=== PATIENT | male | born 1945 | race Caucasian/White ===

== ENCOUNTER 2019-09-10 12:17 | Observation (INO) ==
[2019-09-10 12:58] LABS: Basophils % 0.3 % (0.1-2.0); Eosinophils # 0.1 K/mm3 (0.0-0.4); Eosinophils % 0.8 % (0.1-12.0); Hematocrit 49.2 % (42.0-52.0); Hemoglobin 16.3 g/dL (14.1-18.0); Lymphocytes # 0.6 K/mm3 (0.7-4.5); Lymphocytes % 7.6 % (10-50); Mean Corpuscular HGB Conc 33.1 g/dL (31.8-35.4); Mean Corpuscular Volume 99.8 fl (80-94); Mean Platelet Volume 8.2 fl (7.4-10.4); Monocytes # 0.3 K/mm3 (0.1-1.0); Monocytes % 4.1 % (1.7-9.3); Neutrophils # 6.5 K/mm3 (1.8-7.8); Neutrophils % 87.2 % (37.0-80.0); Platelet Count 197 K/mm3 (142-424); Red Blood Count 4.93 M/mm3 (4.60-6.20); Red Cell Distribution Width 13.8 % (11.5-17.5); White Blood Count 7.5 K/mm3 (4.8-10.8)
[2019-09-10 13:03] LABS: Lymphocytes % 4 % (10-50); Monocytes % 3 % (2-9); Neutrophils % 93 % (42-76); RBC Morphology Normal; Total Cells Counted 100
[2019-09-10 13:05] LABS: Alanine Aminotransferase 17 U/L (12-78); Albumin Level 3.8 gm/dL (3.4-5.0); Alkaline Phosphatase 85 U/L (46-116); Anion Gap 16.6 mEq/L (5-15); Aspartate Amino Transferase 33 U/L (15-37); Bilirubin,Direct 0.4 mg/dL (0.0-0.2); Bilirubin,Indirect 1.4 mg/dL (0.0-0.9); Bilirubin,Total 1.8 mg/dL (0.2-1.0); Blood Urea Nitrogen 14 mg/dL (7-18); Calcium 9.5 mg/dL (8.5-10.1); Carbon Dioxide 25 mmol/L (21.0-32.0); Chloride 102 mmol/L (98-107); Glucose 111 mg/dL (74-106); Sodium 140 mmol/L (136-145); Total Protein,Serum 8.3 gm/dL (6.4-8.2)
[2019-09-10 14:35] LABS: VBG Base Excess -2.3 mmol/L (-2.4-2.3); VBG HCO3 22.7 mmol/L (23-30); VBG Oxygen Saturation 96.1 % (50-70); VBG PCO2 38.7 mmol/L (35-51); VBG PH 7.39 mmol/L (7.31-7.41); VBG PO2 95.5 mmol/L (28-40); VBG Total CO2 23.9 mmol/L (23-27)
--- NOTE | 2019-09-10 21:57 | Emergency Department Note ---
ED Disposition Clinical Impression: Pulmonary fibrosis Pneumonia Qualifiers: Pneumonia type: due to unspecified organism Laterality: bilateral Lung locatio n: unspecified part of lung Qualified Code(s): J18.9 - Pneumonia, unspecified organism Disposition: Admitted as Observation Condition on Discharge: [facility] - Critical Care Critical Care Time: No Attestation: On 09/10/19, the high probability of a clinically significant, sudden or life threatening deterioration of the following system(s) required my full and direct attention, intervention and personal management. The time I documented below is in addition to time spent performing reported procedures but includes the following listed in this critical care notation. Medical Decision Making - Scooby Inquiry Pt receiving controlled substance: No Vital Signs: 09/10/19 12:27 09/10/19 16:00 09/10/19 17:15 Temperature 98.6 F 98.2 F Temperature Source Oral Oral Pulse Rate 89 Pulse Rate [Right Radial] 79 64 Respiratory Rate 18 20 16 Blood Pressure 141/79 H Blood Pressure [Right Arm] 149/96 H 168/78 H Blood Pressure Mean [Right Arm] 113 108 Blood Pressure Source [Right Arm] Automatic Cuff Blood Pressure Position [Right Arm] Supine 02 Sat by Pulse Oximetry 86 L 96 Oxygen Delivery Method Room Air Nasal Cannula Room Air Oxygen Flow Rate (LPM) 2 09/10/19 17:17 Temperature 99.5 F Temperature Source Oral Pulse Rate Pulse Rate [Right Radial] 73 Respiratory Rate Blood Pressure Blood Pressure [Right Arm] 133/69 Blood Pressure Mean [Right Arm] 90 Blood Pressure Source [Right Arm] Automatic Cuff Blood Pressure Position [Right Arm] Supine 02 Sat by Pulse Oximetry 88 L Oxygen Delivery Method Nasal Cannula Oxygen Flow Rate (LPM) 2 - Lab Data Lab Results 09/10/19 12:36: WBC 7.5, RBC 4.93, Hgb 16.3, Hct 49.2, MCV 99.8 H, MCH 33.0 H, MCHC 33.1, RDW 13.8, Plt Count 197, MPV 8.2, Neut % (Auto) 87.2 H, Lymph % (Auto) 7.6 L, [place] % (Auto) 4.1, Eos % (Auto) 0.8, Baso % (Auto) 0.3, Neut # (Auto) 6.5, Lymph # (Auto) 0.6 L, [place] # (Auto) 0.3, Eos # (Auto) 0.1, Baso # (Auto) 0.0, Total Counted 100, Neutrophils % (Manual) 93 H, Lymphocytes % (Manual) 4 L, Monocytes % (Manual) 3, Platelet Estimate Normal, RBC Morphology Normal 09/10/19 12:36: Sodium 140, Potassium 3.6, Chloride 102, Carbon Dioxide 25, [place] 16.6 H, BUN 14, Creatinine 0.92, Estimated Creat Clear 78, Estimated GFR 81, Est GFR ( Amer) 98, Glucose 111 H, Calcium 9.5, Total Bilirubin 1.8 H , Direct Bilirubin 0.4 H, Indirect Bilirubin 1.4 H, AST 33, ALT 17, Alkaline Phosphatase 85, Troponin I < 0.02, Total Protein 8.3 H, Albumin 3.8 09/10/19 12:36: Lactate 1.9 09/10/19 14:12: VBG pH 7.39, VBG pCO2 38.7, VBG pO2 95.5 H, VBG HCO3 22.7 L, VBG Total CO2 23.9, VBG O2 Saturation 96.1 H, VBG Base Excess -2.3 09/10/19 15:23: Troponin I < 0.02 09/10/19 16:40: Influenza Type A Ag Negative, Influenza Type B Ag Negative Result diagrams: 09/10/19 12:36 09/10/19 12:36 Orders (Tests/Meds): ED MEDICATIONS Generic Name Dose Route Start Last Admin Trade Name Robeq PRN Reason Stop Dose Admin Aspirin 81 mg 09/11/19 09:00 Aspirin 81mg Enteric Coated Tablet PO 10/11/19 08:59 DAILY KRISTA Donepezil HCl 5 mg 09/11/19 09:00 Aricept 5mg PO 10/11/19 08:59 DAILY KRISTA Azithromycin 500 mg/ Sodium 250 mls @ 250 mls/hr 09/11/19 16:45 Chloride IV 09/24/19 16:44 Q24H KRISTA Protocol Ceftriaxone Sodium 1 gm/ 50 mls @ 100 mls/hr 09/11/19 16:45 Sodium Chloride IV 09/24/19 16:44 Q24H KRISTA Protocol Lisinopril 10 mg 09/11/19 09:00 Zestril 10mg Tablet PO 10/11/19 08:59 DAILY KRISTA Non-Formulary Medication 1 mg 09/11/19 09:00 Glimepiride PO 10/11/19 08:59 DAILY KRISTA Non-Formulary Medication 1,000 mg pe 09/10/19 21:00 09/10/19 21:03 Metformin Hcl [Metformin 1000mg Tablets] PO 10/10/19 20:59 1,000 mg pe BID KRITSA Administration Non-Formulary Medication 40 mg 09/11/19 09:00 Omeprazole Magnesium [Prilosec] PO 10/11/19 08:59 DAILY KRISTA Non-Formulary Medication 40 mg 09/11/19 09:00 Rosuvastatin Calcium PO 10/11/19 08:59 DAILY KRISTA Discontinued Medications Generic Name Dose Route Start Last Admin Trade Name Freq PRN Reason Stop Dose Admin Azithromycin 500 mg/ Sodium 250 mls @ 250 mls/hr 09/10/19 16:45 09/10/19 19:38 Chloride IV 09/24/19 16:44 250 mls/hr Q24H KRISTA Administration Protocol Ceftriaxone Sodium 1 gm/ 50 mls @ 100 mls/hr 09/10/19 16:45 09/10/19 16:42 Sodium Chloride IV 09/24/19 16:44 100 mls/hr Q24H KRISTA Administration Protocol Ioversol 70 ml 09/10/19 13:39 09/10/19 13:40 Rad-Optiray 350 100ml Vial IV 09/10/19 13:40 70 ml ONCE ONE Administration Protocol Sodium Chloride 10 ml 09/10/19 13:39 09/10/19 13:40 Rad-Saline Flush 10ml Syringe IV 09/10/19 13:40 10 ml ONCE ONE Administration Sodium Chloride 50 ml 09/10/19 13:39 09/10/19 13:40 Rad-Ns 50ml Vial IV 09/10/19 13:40 50 ml ONCE ONE Administration ORDERS Category Date Time Status Blood Culture Stat Micro 09/10/19 12:32 Received Medical Decision Narrative: In summary patient is a 73-year-old male who is nontoxic in appearance, who presents to the emergency department for evaluation of shortness of air. On initial evaluation patient is satting 85% on room air, but has no evidence of respiratory distress, or extremities. Patient's EKG showed normal sinus rhythm, no ST elevation, depression, or QT prolongation noted. Given patient's presentation and for potential pneumonia, pulmonary embolism, acute coronary syndrome, COPD exacerbation. This appropriate work-up ordered. Since chest x-ray returned showing no cardiopulmonary disease. Initial troponin returns and shows no elevation. PE ordered and returned showing no pulmonary embolism patient does have bilateral groundglass opacities could be pulmonary fibrosis versus pneumonitis.. No evidence of a lobar pneumonia. Patient's labs returned and are nonactionable. There is no significant delta. Patient's case discussed with a medical customer service representative of Dr. Mix who agrees given patient's new O2 demand he requires admission for further evaluation of possible pulmonary fibrosis. Plan was discussed with the patient he was amenable. For now patient will be treated as though he is a pneumonia, patient started on azithromycin, and ceftriaxone. Patient admitted. General Adult HPI - General Chief complaint: Shortness of Breath/Dyspnea Stated complaint: chest Xray trouble breathing Time Seen by Provider: 09/10/19 12:30 Mode of Arrival: Ambulatory Limitations: No Limitations Description of Symptoms (Recalled from ER Triage Doc. by RN): PT STATES THAT HE HAS HAD SHORTNESS OF BREATH X 3-4 DAYS. PT DENIES FEVER. PT STATES THAT FOR APPROX 1 MONTH HE HAS DECLINED. PT STATES THAT HE USED TO WALK/RUN DAILY AND THAT NOW THE LAST MONTH HE IS "TOO SHORT OF BREATH." - History of Present Illness HPI narrative: In summary patient is a previously healthy 73-year-old male presenting to the emergency department for evaluation of shortness of air. Patient states he has had a 1 month of ongoing shortness of breath without chest pain. Patient states this is acutely worsened over the last 2 to 3 days. Given this patient presented to the emergency department for further evaluation. Patient feels as though he cannot get a complete breath of air. He denies any chest pain though feels chest congestion. He denies any fevers, chills, nausea, vomiting, abdomi nal pain, or dysuria. Patient states that his shortness of air is worse with deep breathing, and exertion. - Related Data Home Medications Medication Instructions Recorded Confirmed Aspirin [Aspir-Low] 81 mg PO HS 09/10/19 09/10/19 Bifidobacterium Infantis [Align] 10.5 mg PO DAILY 09/10/19 09/10/19 Donepezil HCl [Aricept 5mg 5 mg PO HS 09/10/19 09/10/19 Tablet] Glimepiride 1 mg PO DAILY 09/10/19 09/10/19 Metformin HCl [Metformin 1000mg 1,000 mg pe PO BID 09/10/19 09/10/19 Tablets] Multivit-Min/FA/Lycopen/Lutein 1 each PO DAILY 09/10/19 09/10/19 [Centrum Silver Tablet] Omeprazole Magnesium [Prilosec] 40 mg PO DAILY 09/10/19 09/10/19 Rosuvastatin Calcium 40 mg PO HS 09/10/19 09/10/19 lisinopriL [Lisinopril 10mg Tab] 10 mg PO HS 09/10/19 09/10/19 Allergies Allergy/AdvReac Type Severity Reaction Status Date / Time No Known Allergies Allergy Verified 09/10/19 12:31 [facility] History - Hepatitis A Screen Drug use history?: No High risk sexual behaviors?: No History of sexually transmitted infection?: No Currently employed?: No Childcare worker?: No Do you have indoor plumbing?: Yes Do you have electricity?: Yes Attestation statement:: This patient has been screened for Hepatitis A risk factors. I have reviewed the patient's past medical history: Yes Medical History: Reports:: Coronary Artery Disease, Diabetes Mellitus Type 2 Other Surgeries: Yes: Cardiac Catheterization - Social History Smoking Status: Former smoker Alcohol Intake: never Occupational Status: retired Household Members: spouse Family Hx:: Heart Attack, Stroke ROS Obtained: Yes All systems reviewed & no additional complaints Physical Exam - General General appearance: alert, in no apparent distress - Head Head exam: atraumatic, normocephalic - ENT ENT exam: Present: normal exam, normal oropharynx - Neck Neck exam: Present: normal inspection, full ROM - Chest Chest inspection: Present: normal inspection, symmetric chest wall rise - Respiratory Respiratory exam: Present: normal lung sounds bilaterally. Absent: respiratory distress - Cardiovascular Cardiovascular exam: Present: regular rate, normal rhythm - Abdominal Exam Abdominal exam: Present: soft. Absent: distention, tenderness - Neurological Exam Neurological exam: Present: alert, oriented X3
--- NOTE | 2019-09-11 09:00 | Pharmacy Consult Notes ---
[facility] Pharmacy VTE Monitoring - Patient Demographics Admission date: 09/10/19 Report Date: 09/11/19 Time: 08:59 Allergies/Adverse Reactions: Patient Allergies No Known Allergies Allergy (Verified 09/10/19 12:31) Height: 1.83 m Weight: 78.585 kg Patient Problems: Current Active Problems Pneumonia (Acute) Pulmonary fibrosis (Acute) - VTE Risk Labs: VTE Related Lab Results Hgb 16.3 g/dL (14.1-18.0) 09/10/19 12:36 Hct 49.2 % (42.0-52.0) 09/10/19 12:36 Plt Count 197 K/mm3 (142-424) 09/10/19 12:36 BUN 14 mg/dL (7-18) 09/10/19 12:36 Creatinine 0.92 mg/dL (0.70-1.30) 09/10/19 12:36 Estimated Creat Clear 78 mL/min (50-200) 09/10/19 12:36 VTE Score: 5 VTE Risk Level: Low Risk - Prophylaxis VTE Prophylaxis Ordered?: Yes Types of VTE Prophylaxis: TEDS Knee High Location of Applied Device: Bilateral Lower Extremeties
--- NOTE | 2019-09-11 09:49 | Consult Report ---
History of Present Illness Consult date: 09/11/19 Requesting physician: Naun Mix Consult reason: chest pain, shortness of breath Chief complaint: chest pain and SOB Additional Medical History:: 1. CAD s/p stenting 8 years ago 2. htn 3. hld 4. dm History of present illness: This is a 73-year-old white male who was admitted to the hospital with shortness of breath as well as chest pain. The patient states that about 2 or 3 months ago he started experiencing what he describes as GERD and reflux at night. The patient states that he has a burning in the central aspect of his chest that radiates up to his neck and throat. He states that this GERD and reflux has been waking him up at night for the last 2 to 3 months. He states that this has progressively worsened over time and has also started occurring when he is exerting himself and sometimes even at rest. He states that this burning in the chest can be severe. It is associated with profound shortness of breath. He states that he wakes up in the middle of the night sometimes and choking because he is so short of breath and having the burning in his chest. The patient states that his shortness of breath is severe as well. He states that he is unable to even walk across the floor at home or up the stairs which he typically does without any symptoms at all but now he is experiencing the burning in his chest as well as the severe shortness of breath. He states that he also has some fatigue which is new for him. The patient denies any radiation of the pain. The chest burning and shortness of breath is worsened with exertion and it does improve with rest. He states that this can be severe at times. The patient is currently being treated for pneumonia. However his chest x-ray is suspicious for pneumonia versus interstitial edema. The patient does have a history of coronary artery disease with stenting when he was 65 years old. He does report that his father had 4 heart attacks and was undergoing a 5 vessel coronary artery bypass grafting when he . He states that his mother is alive at the age of 98. He has a history of hyperlipidemia since the age of 24. He is diabetic and does state that he has cool extremities from time to time. He is also treated for hypertension. He denies any fever, chills, nausea, vomiting, diarrhea, PND or orthopnea. [facility] History I have reviewed the patient's past medical history: Yes Medical History: Reports:: Coronary Artery Disease, Diabetes Mellitus Type 2, Hyperlipidemia, Hypertension *Have you ever received a pneumonia vaccine?: Yes *Have you received a flu vaccine this season?: Yes Other Surgeries: Yes: Cardiac Catheterization - *Social History Smoking Status: Former smoker Alcohol Intake: never *Occupational Status:: retired Household Members: spouse *Travel in the last 8 weeks: None Family Hx:: Heart Attack, Stroke Meds Home Medications Medication Instructions Recorded Confirmed Type Aspirin [Aspir-Low] 81 mg PO DAILY 09/10/19 09/11/19 History Bifidobacterium Infantis [Align] 1 tab PO DAILY 09/10/19 09/11/19 History Donepezil HCl [Aricept 5mg 5 mg PO HS 09/10/19 09/10/19 History Tablet] Glimepiride 2 mg PO DAILY 09/10/19 09/11/19 History Metformin HCl [Metformin 1000mg 1,000 mg PO BID 09/10/19 09/11/19 History Tablets] Multivit-Min/FA/Lycopen/Lutein 1 each PO DAILY 09/10/19 09/10/19 History [Centrum Silver Tablet] Rosuvastatin Calcium 40 mg PO HS 09/10/19 09/10/19 History lisinopriL [Lisinopril 10mg Tab] 10 mg PO HS 09/10/19 09/10/19 History Omeprazole [Omeprazole 20mg Tab] 20 mg PO DAILY 09/11/19 09/11/19 History Allergies Allergy/AdvReac Type Severity Reaction Status Date / Time No Known Allergies Allergy Verified 09/10/19 12:31 Review of Systems - Review of Systems Review of systems:: pertinent systems reviewed and negative unless documented below - Constitutional Reports fatigue - *Cardiovascular Reports chest pain (Chest burning), Reports shortness of breath, Reports shortness of breath with activity - *Respiratory Reports shortness of breath, Reports shortness of breath with activity - *Gastrointestinal Reports heartburn - *Neurologic Reports tingling/numbness/burning sensations Exam Vital signs and Labs for Last 24 Hours: Temp Pulse Resp BP Pulse Ox 97.8 F 70 18 139/69 94 L 09/11/19 08:00 09/11/19 08:00 09/11/19 08:00 09/11/19 08:00 09/11/19 08:00 Laboratory Results - last 24 hr 09/10/19 12:36: WBC 7.5, RBC 4.93, Hgb 16.3, Hct 49.2, MCV 99.8 H, MCH 33.0 H, MCHC 33.1, RDW 13.8, Plt Count 197, MPV 8.2, Neut % (Auto) 87.2 H, Lymph % (Auto) 7.6 L, [place] % (Auto) 4.1, Eos % (Auto) 0.8, Baso % (Auto) 0.3, Neut # (Auto) 6.5, Lymph # (Auto) 0.6 L, [place] # (Auto) 0.3, Eos # (Auto) 0.1, Baso # (Auto) 0.0, Total Counted 100, Neutrophils % (Manual) 93 H, Lymphocytes % (Manual) 4 L, Monocytes % (Manual) 3, Platelet Estimate Normal, RBC Morphology Normal 09/10/19 12:36: Sodium 140, Potassium 3.6, Chloride 102, Carbon Dioxide 25, Anion Gap 16.6 H, BUN 14, Creatinine 0.92, Estimated Creat Clear 78, Estimated GFR 81, Est GFR ( Amer) 98, Glucose 111 H, Calcium 9.5, Total Bilirubin 1.8 H, Direct Bilirubin 0.4 H, Indirect Bilirubin 1.4 H, AST 33, ALT 17, Alkaline Phosphatase 85, Troponin I < 0.02, Total Protein 8.3 H, Albumin 3.8 09/10/19 12:36: Lactate 1.9 09/10/19 14:12: VBG pH 7.39, VBG pCO2 38.7, VBG pO2 95.5 H, VBG HCO3 22.7 L, VBG Total CO2 23.9, VBG O2 Saturation 96.1 H, VBG Base Excess -2.3 09/10/19 15:23: Troponin I < 0.02 09/10/19 16:40: Influenza Type A Ag Negative, Influenza Type B Ag Negative I & O for Last 24 hours: Intake & Output 09/08/19 09/09/19 09/10/19 09/11/19 23:59 23:59 23:59 23:59 Intake Total 240 / 240 Balance 240 / 240 Weight 176 lb 3 oz 173 lb 4 oz Narrative: EKG is sinus rhythm CT of the chest shows: No evidence of pulmonary embolism. Bilateral ground-glass lung densities which are nonspecific and differential would include more chronic process such is fibrotic changes versus pneumonitis or developing interstitial edema. Uncomplicated cholelithiasis. - Constitutional no acute distress, average body habitus - *Routine HEENT Exam Head: Present: normocephalic, atraumatic Eye: Present: EOMI, PERRL ENT: Present: mucous membranes moist - *Routine Neck Exam Present: supple, full ROM, normal carotid upstroke. Absent: JVD, carotid bruit, lymphadenopathy - *Routine Respiratory Exam Present: CTA bilaterally - *Routine Cardiovascular Exam Present: RRR, Normal S1, Normal S2. Absent: murmur - *Routine Abdominal Exam Present: soft, normoactive bowel sounds. Absent: tenderness, distended - *Routine Extremities Exam Present: full ROM, pulses intact, normal capillary refill. Absent: cyanosis, clubbing, edema - *Routine Skin Exam Present: intact, warm. Absent: erythema, rash - *Routine Neurological Exam Present: alert, oriented X3, CN II-XII intact. Absent: sensory deficit, motor deficit - Routine Psychiatric Exam Present: normal affect, normal thought process - Detailed Eye Exam Eyelids: Left normal inspection Assessment and Plan (1) Angina pectoris Current visit: Yes Status: Acute Category: Medical Code(s): I20.9 - Angina pectoris, unspecified (2) Coronary artery disease Current visit: Yes Status: Chronic Category: Medical Code(s): I25.10 - Atherosclerotic heart disease of [place] coronary artery without angina pectoris (3) Shortness of breath Current visit: Yes Status: Acute Category: Medical Code(s): R06.02 - Shortness of breath (4) Hypertension Current visit: Yes Status: Chronic Category: Medical Code(s): I10 - Essential (primary) hypertension (5) Hyperlipidemia Current visit: Yes Status: Chronic Category: Medical Code(s): E78.5 - Hyperlipidemia, unspecified (6) Family history of ischemic heart disease Current visit: Yes Status: Chronic Category: Medical Code(s): Z82.49 - Family history of ischemic heart disease and other diseases of the circulatory system (7) Pneumonia Current visit: Yes Status: Acute Qualifiers: Pneumonia type: due to unspecified organism Laterality: bilateral Lung location: unspecified part of lung Qualified Code(s): J18.9 - Pneumonia, unspecified organism Category: Medical Code(s): J18.9 - Pneumonia, unspecified organism (8) GERD (gastroesophageal reflux disease) Current visit: Yes Status: Acute Category: Medical Code(s): K21.9 - Gastro-esophageal reflux disease without esophagitis - Assessment and plan all Dx Assessment and Plan for all problems:: Plan: 1. The patient was admitted to the hospital with shortness of breath and chest pain that he is describing is GERD. The patient was found to have questionable pneumonia and is being treated for this by his primary care provider. Will defer. 2. The patient's CAT scan of his chest is questionable for pneumonia versus interstitial edema. The patient could be having some heart failure from underlying coronary artery disease. He does have a known history of coronary artery disease with stenting approximately 8 years ago. He states the vessel in the back of his heart was stented but he does not know exactly which vessel this was. The patient states at that time he was essentially asymptomatic. He has been having worsening GERD over the last 2 to 3 months which is likely his anginal equivalent. The patient states that this is waking him up at night and it is worse with exertion and associated with severe shortness of breath. This is typical angina. Known hyperlipidemia and diabetes, placing him at high risk for coronary artery disease progression. We will plan to proceed with left cardiac catheterization to evaluate his coronary artery disease. 3. The patient has been educated on the risks and benefits of proceeding with left cardiac catheterization. The patient verbalizes understanding is agreeable in proceeding with the procedure. 4. The patient will be n.p.o. in preparation for left cardiac catheterization. 5. He will get premedications prior to the procedure. 6. The patient's blood pressure is well controlled. 7. His LDL goal is less than 55. We will get a lipid panel. 8. The patient is diabetic. He does need aggressive control of his diabetes. 9. We will get an echocardiogram to evaluate his LV function. 10. Further recommendations will be made pending the patient's response to treatment and the results of his echocardiogram and left cardiac catheterization today. Thank you for the opportunity to help participate in the care of this patient.
--- NOTE | 2019-09-11 13:49 | History & Physical Report ---
*Admission Date: 09/10/19 *Chief complaint: soa *History of present illness: 73-year-old male who presented to ed with c/o shortness of breath as well as chest pain. Patient states that about 2 or 3 months ago he started experiencing what he describes as GERD and reflux at night. Patient states GERD and reflux has been waking him up at night for the last 2 to 3 months. He states that this has progressively worsened over time and has also started occurring when he is exerting himself and sometimes even at rest. He states that this burning in the chest can be severe at times worse with laying. Patient states that he wakes up in the middle of the night sometimes and choking because he is so short of breath and having the burning in his chest from GERD. He states that he is unable to even walk across the floor at home or up the stairs which he typically does without any symptoms at all but now he is experiencing the burning in his chest as well as the severe shortness of breath. Pt states he was able to run 3 miles on treadmill but due to shortness of breath and pain, he is unable to do so anymore. He states that he also has some fatigue which is new for him over the last two months.Pt admitted for cardiology consult and treatment for poss pneumonia [facility] History I have reviewed the patient's past medical history: Yes Medical History: Reports:: Coronary Artery Disease, Diabetes Mellitus Type 2, Hyperlipidemia, Hypertension *Have you ever received a pneumonia vaccine?: Yes *Have you received a flu vaccine this season?: Yes Other Surgeries: Yes: Cardiac Catheterization - *Social History Smoking Status: Former smoker Alcohol Intake: never *Occupational Status:: retired Household Members: spouse *Travel in the last 8 weeks: None Family Hx:: Heart Attack, Stroke Review of Systems - Review of Systems Review of systems:: pertinent systems reviewed and negative unless documented below - Constitutional Denies body ache(s), Denies lack of energy - Eyes Denies change in vision - ENT Denies change in voice, Denies nasal discharge - *Cardiovascular Reports chest pain at rest, Reports shortness of breath, Reports shortness of breath with activity, Denies chest pain with activity - *Respiratory Reports shortness of breath, Reports shortness of breath with activity - *Gastrointestinal Denies nausea, Denies vomiting - *Genitourinary Denies urinary frequency - *Musculoskeletal Denies limited joint movement - Integumentary/Breasts Denies rash - *Neurologic Reports tingling/numbness/burning sensations, Denies abnormal movements - Psychiatric Denies lack of enjoyment - Endocrine Denies increased thirst - Hematologic/Lymphatic Denies enlarged lymph nodes - Allergic/Immunologic Denies lip swelling Meds Home Medications Medication Instructions Recorded Confirmed Type Aspirin [Aspir-Low] 81 mg PO DAILY 09/10/19 09/11/19 History Bifidobacterium Infantis [Align] 1 tab PO DAILY 09/10/19 09/11/19 History Donepezil HCl [Aricept 5mg 5 mg PO HS 09/10/19 09/10/19 History Tablet] Glimepiride 2 mg PO DAILY 09/10/19 09/11/19 History Metformin HCl [Metformin 1000mg 1,000 mg PO BID 09/10/19 09/11/19 History Tablets] Multivit-Min/FA/Lycopen/Lutein 1 each PO DAILY 09/10/19 09/10/19 History [Centrum Silver Tablet] Rosuvastatin Calcium 40 mg PO HS 09/10/19 09/10/19 History lisinopriL [Lisinopril 10mg Tab] 10 mg PO HS 09/10/19 09/10/19 History Omeprazole [Omeprazole 20mg Tab] 20 mg PO DAILY 09/11/19 09/11/19 History Allergies Allergy/AdvReac Type Severity Reaction Status Date / Time No Known Allergies Allergy Verified 09/10/19 12:31 Exam Vital signs and Labs for Last 24 Hours: Temp Pulse Resp BP Pulse Ox 98.6 F 64 20 139/69 75 L 09/11/19 12:00 09/11/19 12:00 09/11/19 12:00 09/11/19 12:00 09/11/19 12:51 Laboratory Results - last 24 hr 09/10/19 14:12: VBG pH 7.39, VBG pCO2 38.7, VBG pO2 95.5 H, VBG HCO3 22.7 L, VBG Total CO2 23.9, VBG O2 Saturation 96.1 H, VBG Base Excess -2.3 09/10/19 15:23: Troponin I < 0.02 09/10/19 16:40: Influenza Type A Ag Negative, Influenza Type B Ag Negative I & O for Last 24 hours: Intake & Output 09/09/19 09/10/19 09/11/19 09/12/19 11:59 11:59 11:59 11:59 Intake Total 240 / 240 Balance 240 / 240 Weight 173 lb 4 oz - Constitutional no acute distress - *Routine HEENT Exam Head: Present: normocephalic Eye: Present: PERRL ENT: Present: mucous membranes moist - *Routine Neck Exam Present: supple. Absent: lymphadenopathy - *Routine Respiratory Exam Present: CTA bilaterally - *Routine Cardiovascular Exam Present: RRR - *Routine Abdominal Exam Present: soft, normoactive bowel sounds. Absent: tenderness - *Routine Extremities Exam Present: full ROM. Absent: cyanosis, clubbing, edema - *Routine Skin Exam Present: intact, warm. Absent: rash - *Routine Neurological Exam Present: alert, oriented X3 - Routine Psychiatric Exam Present: normal affect Assessment and Plan (1) Angina pectoris Current visit: Yes Status: Acute Category: Medical Code(s): I20.9 - Angina pectoris, unspecified (2) Coronary artery disease Current visit: Yes Status: Chronic Category: Medical Code(s): I25.10 - Atherosclerotic heart disease of [place] coronary artery without angina pectoris (3) Shortness of breath Current visit: Yes Status: Acute Category: Medical Code(s): R06.02 - Shortness of breath (4) Hypertension Current visit: Yes Status: Chronic Category: Medical Code(s): I10 - Essential (primary) hypertension (5) Hyperlipidemia Current visit: Yes Status: Chronic Category: Medical Code(s): E78.5 - Hyperlipidemia, unspecified (6) Family history of ischemic heart disease Current visit: Yes Status: Chronic Category: Medical Code(s): Z82.49 - Family history of ischemic heart disease and other diseases of the circulatory system (7) Pneumonia Current visit: Yes Status: Acute Qualifiers: Pneumonia type: due to unspecified organism Laterality: bilateral Lung location: unspecified part of lung Qualified Code(s): J18.9 - Pneumonia, unspecified organism Category: Medical Code(s): J18.9 - Pneumonia, unspecified organism (8) GERD (gastroesophageal reflux disease) Current visit: Yes Status: Acute Category: Medical Code(s): K21.9 - Gastro-esophageal reflux disease without esophagitis - Assessment and plan all Dx Assessment and Plan for all problems:: rounded with dr kruger all orders per dr kruger cardiology consult
[2019-09-12 05:23] LABS: Basophils % 0.2 % (0.1-2.0); Eosinophils % 0.4 % (0.1-12.0); Hematocrit 42.1 % (42.0-52.0); Hemoglobin 13.4 g/dL (14.1-18.0); Lymphocytes # 0.8 K/mm3 (0.7-4.5); Lymphocytes % 11.4 % (10-50); Mean Corpuscular HGB Conc 31.8 g/dL (31.8-35.4); Mean Corpuscular Volume 98.5 fl (80-94); Mean Platelet Volume 8.2 fl (7.4-10.4); Monocytes # 0.7 K/mm3 (0.1-1.0); Monocytes % 9.9 % (1.7-9.3); Neutrophils # 5.6 K/mm3 (1.8-7.8); Neutrophils % 78.1 % (37.0-80.0); Platelet Count 215 K/mm3 (142-424); Red Blood Count 4.27 M/mm3 (4.60-6.20); Red Cell Distribution Width 14.4 % (11.5-17.5); White Blood Count 7.1 K/mm3 (4.8-10.8)
[2019-09-12 05:42] LABS: Anion Gap 12.8 mEq/L (5-15); Calcium 8.9 mg/dL (8.5-10.1); Chol/HDL Ratio 2.8 (1-3.5)
--- NOTE | 2019-09-12 07:26 | Progress Note ---
Internal Medicine - PN: Subj *Date: 09/12/19 *Time: 07:21 Interval history: pt with prod cough this am - had stent yesterday - pt with no fever - no chest pain - pt on abx and sputum culture obtained Exam Vital signs and Labs for Last 24 Hours: Temp Pulse Resp BP Pulse Ox 98.3 F 64 18 149/80 H 91 L 09/12/19 06:20 09/12/19 06:00 09/11/19 19:46 09/12/19 06:00 09/12/19 06:00 Laboratory Results - last 24 hr 09/11/19 14:22: Activated Clotting Time 331 H* 09/12/19 04:55: WBC 7.1, RBC 4.27 L, Hgb 13.4 L, Hct 42.1, MCV 98.5 H, MCH 31.3 H, MCHC 31.8, RDW 14.4, Plt Count 215, MPV 8.2, Neut % (Auto) 78.1, Lymph % (Auto) 11.4, [place] % (Auto) 9.9 H, Eos % (Auto) 0.4, Baso % (Auto) 0.2, Neut # (Auto) 5.6, Lymph # (Auto) 0.8, [place] # (Auto) 0.7, Eos # (Auto) 0.0, Baso # (Auto) 0.0 09/12/19 04:55: Sodium 139, Potassium 3.8, Chloride 105, Carbon Dioxide 25, Anion Gap 12.8, BUN 15, Creatinine 0.81, Estimated Creat Clear 72, Estimated GFR 93, Est GFR ( Amer) 113, Glucose 90, Calcium 8.9, Triglycerides 83, Cholesterol 95 L, LDL Cholesterol 44, VLDL Cholesterol 17, HDL Cholesterol 34, Cholesterol/HDL Ratio 2.8 I & O for Last 24 hours: Intake & Output 09/09/19 09/10/19 09/11/19 09/12/19 11:59 11:59 11:59 11:59 Intake Total 240 / 240 550 / 550 Balance 240 / 240 550 / 550 Weight 173 lb 4 oz 170 lb 4.004 oz Microbiology Reports for the Last 24 Hours: Microbiology 09/11/19 19:37 Sputum - Expectorated Sputum Gram Stain - Final 09/11/19 19:37 Sputum - Expectorated Sputum Sputum Culture - Preliminary - Constitutional no acute distress - *Routine HEENT Exam Head: Present: normocephalic Eye: Present: EOMI, PERRL ENT: Present: mucous membranes dry - *Routine Neck Exam Absent: JVD - *Routine Respiratory Exam Present: rhonchi - *Routine Cardiovascular Exam Present: RRR, murmur. Absent: rubs - *Routine Abdominal Exam Present: soft - *Routine Extremities Exam Absent: calf tenderness - *Routine Skin Exam Present: intact - *Routine Neurological Exam Present: alert, CN II-XII intact - Routine Psychiatric Exam Present: normal affect Assessment and Plan (1) Angina pectoris Current visit: Yes Status: Acute Category: Medical Code(s): I20.9 - Angina pectoris, unspecified (2) Coronary artery disease Current visit: Yes Status: Chronic Category: Medical Code(s): I25.10 - Atherosclerotic heart disease of [place] coronary artery without angina pectoris (3) Shortness of breath Current visit: Yes Status: Acute Category: Medical Code(s): R06.02 - Shortness of breath (4) Hypertension Current visit: Yes Status: Chronic Category: Medical Code(s): I10 - Essential (primary) hypertension (5) Hyperlipidemia Current visit: Yes Status: Chronic Category: Medical Code(s): E78.5 - Hyperlipidemia, unspecified (6) Family history of ischemic heart disease Current visit: Yes Status: Chronic Category: Medical Code(s): Z82.49 - Family history of ischemic heart disease and other diseases of the circulatory system (7) Pneumonia Current visit: Yes Status: Acute Qualifiers: Pneumonia type: due to unspecified organism Laterality: bilateral Lung location: unspecified part of lung Qualified Code(s): J18.9 - Pneumonia, unspecified organism Category: Medical Code(s): J18.9 - Pneumonia, unspecified organism (8) GERD (gastroesophageal reflux disease) Current visit: Yes Status: Acute Category: Medical Code(s): K21.9 - Gastro-esophageal reflux disease without esophagitis (9) Diabetes 1.5, managed as type 2 Current visit: Yes Status: Acute Category: Medical Code(s): E13.9 - Other specified diabetes mellitus without complications
--- NOTE | 2019-09-12 23:51 | Discharge Summary ---
General - General Admission date:: 09/10/19 Discharge date: 09/13/19 HPI HPI: 73-year-old male who presented to ed with c/o shortness of breath as well as chest pain. Patient states that about 2 or 3 months ago he started experiencing what he describes as GERD and reflux at night. Patient states GERD and reflux has been waking him up at night for the last 2 to 3 months. He states that this has progressively worsened over time and has also started occurring when he is exerting himself and sometimes even at rest. He states that this burning in the chest can be severe at times worse with laying. Patient states that he wakes up in the middle of the night sometimes and choking because he is so short of breath and having the burning in his chest from GERD. He states that he is unable to even walk across the floor at home or up the stairs which he typically does without any symptoms at all but now he is experiencing the burning in his chest as well as the severe shortness of breath. Pt states he was able to run 3 miles on treadmill but due to shortness of breath and pain, he is unable to do so anymore. He states that he also has some fatigue which is new for him over the last two months.Pt admitted for cardiology consult and treatment for poss pneumonia Hospital Course Hospital Course: 73-year-old gentleman who presented to [facility] with anginal symptoms. Was admitted to medicine for management. Taken to the Set Up / Operator where he had a stent placed, please see cath report. Tolerated procedure well but developed cough and noted to have pneumonia after procedure. Patient was diagnosed with community-acquired pneumonia and started on antibiotics and steroids as well as oxygen which was new for him. Monitored for the next 48 hours with gradual de-escalation and wean of his oxygen. Tolerating room air with sats of 92 to 98% on day of discharge. Transition oral antibiotics and steroids to complete treatment for community-acquired pneumonia. Optimized goal-directed therapy for his post stent placement. Patient denies chest pain. Still has some mild shortness of breath but improved. No nausea, vomiting, diarrhea. Medically stable for discharge home. Recommend following up with his primary care within a week and cardiology within 2 weeks. Objective Vital signs: Temp Pulse Resp BP Pulse Ox 98.6 F 92 H 12 138/61 94 L 09/12/19 20:00 09/12/19 20:00 09/12/19 20:00 09/12/19 20:00 09/12/19 20:00 Narrative: - Constitutional no acute distress - *Routine HEENT Exam Head: Present: normocephalic Eye: Present: EOMI, PERRL ENT: Present: mucous membranes dry - *Routine Neck Exam Absent: JVD - *Routine Respiratory Exam Present: Movement bilaterally, no wheeze or rhonchi. - *Routine Cardiovascular Exam Present: RRR, murmur. Absent: rubs - *Routine Abdominal Exam Present: soft - *Routine Extremities Exam Right radial insertion site with small area of ecchymoses, no significant hematoma or bruit. No bleeding or pain. - *Routine Skin Exam Present: intact - *Routine Neurological Exam Present: alert and oriented x3, CN II-XII intact - Routine Psychiatric Exam Present: normal affect Results Labs on day of discharge: Labs from last 24 hours 09/12/19 09/12/19 04:55 04:55 WBC 7.1 RBC 4.27 L Hgb 13.4 L Hct 42.1 MCV 98.5 H MCH 31.3 H MCHC 31.8 RDW 14.4 Plt Count 215 MPV 8.2 Neut % (Auto) 78.1 Lymph % (Auto) 11.4 [place] % (Auto) 9.9 H Eos % (Auto) 0.4 Baso % (Auto) 0.2 Neut # (Auto) 5.6 Lymph # (Auto) 0.8 [place] # (Auto) 0.7 Eos # (Auto) 0.0 Baso # (Auto) 0.0 Sodium 139 Potassium 3.8 Chloride 105 Carbon Dioxide 25 Anion Gap 12.8 BUN 15 Creatinine 0.81 Estimated Creat Clear 72 Estimated GFR 93 Est GFR ( Amer) 113 Glucose 90 Calcium 8.9 Triglycerides 83 Cholesterol 95 L LDL Cholesterol 44 VLDL Cholesterol 17 HDL Cholesterol 34 Cholesterol/HDL Ratio 2.8 Preliminary micro results at discharge 09/10/19 12:32 Blood Culture - Preliminary Blood NO GROWTH AFTER 48 HOURS 09/10/19 12:32 Blood Culture - Preliminary Blood NO GROWTH AFTER 48 HOURS 09/11/19 19:37 Sputum Culture - Preliminary Sputum - Expectorated Sputum DS: Diagnosis - Discharge Diagnosis (1) Angina pectoris Status: Resolved (2) Coronary artery disease Status: Chronic (3) Shortness of breath Status: Resolved (4) Hypertension Status: Chronic (5) Hyperlipidemia Status: Chronic (6) Family history of ischemic heart disease Status: Chronic (7) Pneumonia Status: Acute (8) GERD (gastroesophageal reflux disease) Status: Chronic (9) Diabetes 1.5, managed as type 2 Status: Chronic Discharge Plan - Patient Discharge Instructions ACTIVITY: No heavy lifting DIET: low fat, low cholesterol Patient Instructions: Gastroesophageal Reflux Disease (Alternative Therapy), Cardiac Catheterization, Idiopathic Pulmonary Fibrosis, DI for Pneumonia -- Adult, DI for Cardiac Catheterization, DI for Gastroesophageal Reflux Disease (GERD) - Follow up Plan Follow up with: Sandeep Braden MD [Staff Physician] - 09/18/19 10:00 am Unknown provider or service follow up:: 09/13/19 08:06 patient's primary PCP Disposition: Home, Self-Retirement Medications: Home Medications Medication Instructions Recorded Confirmed Type Aspirin [Aspir-Low] 81 mg PO DAILY 09/10/19 09/11/19 History Bifidobacterium Infantis [Align] 1 tab PO DAILY 09/10/19 09/11/19 History Donepezil HCl [Aricept 5mg 5 mg PO HS 09/10/19 09/10/19 History Tablet] Glimepiride 2 mg PO DAILY 09/10/19 09/11/19 History Metformin HCl [Metformin 1000mg 1,000 mg PO BID 09/10/19 09/11/19 History Tablets] Multivit-Min/FA/Lycopen/Lutein 1 each PO DAILY 09/10/19 09/10/19 History [Centrum Silver Tablet] Rosuvastatin Calcium 40 mg PO HS 09/10/19 09/10/19 History lisinopriL [Lisinopril 10mg Tab] 10 mg PO HS 09/10/19 09/10/19 History Omeprazole [Omeprazole 20mg Tab] 20 mg PO DAILY 09/11/19 09/11/19 History Azithromycin [Azithromycin 500mg 500 mg PO DAILY 1 Days #1 tab 09/12/19 Rx Tab] Cefdinir [Omnicef 300mg Capsule] 300 mg PO BID 5 Days #10 cap 09/12/19 Rx Ticagrelor [Brilinta 90mg Tablet] 90 mg PO BID 30 Days #60 tab 09/12/19 Rx predniSONE [Deltasone 10mg tablet] 40 mg PO DAILY 3 Days #12 tab 09/12/19 Rx Prescriptions/Medication Reconciliation: New Ticagrelor [Brilinta 90mg Tablet] 90 mg PO BID 30 Days #60 tab Azithromycin [Azithromycin 500mg Tab] 500 mg PO DAILY 1 Days #1 tab Cefdinir [Omnicef 300mg Capsule] 300 mg PO BID 5 Days #10 cap predniSONE [Deltasone 10mg tablet] 40 mg PO DAILY 3 Days #12 tab Continued lisinopriL [Lisinopril 10mg Tab] 10 mg PO HS Aspirin [Aspir-Low] 81 mg PO DAILY Donepezil HCl [Aricept 5mg Tablet] 5 mg PO HS Omeprazole [Omeprazole 20mg Tab] 20 mg PO DAILY Rosuvastatin Calcium 40 mg PO HS Glimepiride 2 mg PO DAILY Metformin HCl [Metformin 1000mg Tablets] 1,000 mg PO BID Multivit-Min/FA/Lycopen/Lutein [Centrum Silver Tablet] 1 each PO DAILY Bifidobacterium Infantis [Align] 1 tab PO DAILY - Problem Reconciliation Problems Reviewed?: Yes
--- NOTE | 2019-09-13 14:32 | Electrocardiograph Report ---
APPROVED REPORT Exam: Resting ECG HR:66 bpm ECG Measurements Heart Rate 66 AXES MA 178 P 37 QRSd 92 QRS 42 QT 392 T64 QTc 410 <Conclusion> Normal sinus rhythm Normal ECG Electronically signed by : Andrew Sloan, 09/13/2019 14:32:35
== END 2019-09-13 13:01 | disposition home or self-care (01) ==
LOC: ER 12:17 → 2ND 12:17
PROVIDERS: ADMIT Emergency Medicine; ATTEND Emergency Medicine
CPT/HCPCS: 71020; 71046; 71275; 80048; 80061; 80076; 82803; 83605; 84484; 85007; 85025; 85347; 87040; 87070; 87077; 87186; 87205; 87275; 87276; 92928; 93005; 93306; 93458; 94640; 94761; 96365; 99152; 99285; C1725; C1769; C1876; C9600; G0378; J0456; J1644; J2405; Q9967

== ENCOUNTER 2019-09-21 08:53 | Outpatient (RCR) | payer MEDICARE, SELFPAY | END 2019-12-16 10:36 | disposition home or self-care (01) | LOC: PT 08:53 | PROVIDERS: Visit Provider Internal Medicine | DX: Z95.5 Presence of coronary angioplasty implant and graft (principal) | CPT/HCPCS: 93798 ==

== ENCOUNTER → 2019-09-23 07:44 | Outpatient (CLI) | payer MEDICARE, SELFPAY ==
--- NOTE | 2019-09-23 07:48 | CT_ITS ---
PROCEDURE: CT SINUS WO CON CLINICAL HISTORY: CHRONIC SINUSTIS Chronic sinusitis COMPARISON: No exams were available for comparison TECHNIQUE: Axial images obtained with sagittal and coronal reformats. All CT scans at the facility use one or more dose reduction, viz: automated exposure control, ma/kV adjustment per patient size (including targeted exams where dose is matched to indication, i.e. head), or iterative reconstruction technique. FINDINGS: There is mucosal thickening with air-fluid level of the inferior aspect of the frontal sinuses with severe mucosal thickening involving the ethmoid sinuses bilaterally and moderate mucosal thickening of the maxillary sinuses with bilateral maxillary sinus air-fluid levels. Mild mucosal thickening involves the sphenoid sinus anteriorly on the right and left. No mastoid effusion. There is moderate leftward nasal septal deviation. The ostiomeatal units are occluded on both sides. Unremarkable appearing orbits. There is a small metallic density within the anterior aspect of the membranous nasal septum IMPRESSION: Pansinusitis with leftward nasal septal deviation Dictated by: Gustavo Turner MD 09/24/2019 11:26 Electronically signed by Gustavo Turner MD in [facility] 09/24/2019 11:26
== END ==
PROVIDERS: PCP Family Medicine; Visit Provider Family Medicine
DX: J32.9 Chronic sinusitis, unspecified (principal)
CPT/HCPCS: 70486

== ENCOUNTER → 2019-10-14 09:23 | Outpatient (CLI) | payer MEDICARE, SELFPAY ==
--- NOTE | 2019-10-14 09:29 | XR_ITS ---
PROCEDURE: XR CHEST 2V CLINICAL HISTORY: dyspnea COMPARISON: CT ANGIO CHEST from 09/10/2019 XR CHEST 2V from 09/10/2019 XR CHEST 2V from 09/12/2019 FINDINGS: The cardiomediastinal silhouette and pulmonary vascularity are within normal limits. Vague increased density is present in the right suprahilar region in the lower lobes. Wispy areas of infiltrate is considered in this patient with history of ground-glass opacities on previous CT scan of 09/10/2019 consider follow-up CT for confirmation. No acute bony findings. IMPRESSION: Patchy infiltrate or ground-glass opacity in the right suprahilar region and lower lobes. Consider nonemergent high-resolution chest CT for more thorough evaluation. Dictated by: Gustavo Turner MD 10/14/2019 12:03 Electronically signed by Gustavo Turner MD in [facility] 10/14/2019 12:03
[2019-10-14 10:41] LABS: Basophils % 0.4 % (0.1-2.0); Eosinophils # 0.1 K/mm3 (0.0-0.4); Eosinophils % 2.6 % (0.1-12.0); Hematocrit 45.6 % (42.0-52.0); Lymphocytes # 0.8 K/mm3 (0.7-4.5); Lymphocytes % 15.5 % (10-50); Mean Corpuscular HGB Conc 32.8 g/dL (31.8-35.4); Mean Corpuscular Hemoglobin 32.9 pg (27.0-31.2); Mean Corpuscular Volume 100.1 fl (80-94); Monocytes # 0.4 K/mm3 (0.1-1.0); Monocytes % 8.7 % (1.7-9.3); Neutrophils # 3.6 K/mm3 (1.8-7.8); Neutrophils % 72.7 % (37.0-80.0); Platelet Count 227 K/mm3 (142-424); Red Blood Count 4.55 M/mm3 (4.60-6.20); Red Cell Distribution Width 14.3 % (11.5-17.5); White Blood Count 4.9 K/mm3 (4.8-10.8)
[2019-10-14 10:55] LABS: Anion Gap 10.8 mEq/L (5-15); Blood Urea Nitrogen 9 mg/dL (7-18); Calcium 9.3 mg/dL (8.5-10.1); Carbon Dioxide 28 mmol/L (21.0-32.0); Chloride 104 mmol/L (98-107); Creatinine,Serum 1.07 mg/dL (0.70-1.30); Estimated Glomerular Filt Rate 68 ml/min (>60); GFR (African American) 82 ML/MIN (>60); Potassium 3.8 mmoL/L (3.5-5.1); Sodium 139 mmol/L (136-145); Troponin I < 0.02 ng/ml (0.00-0.06)
[2019-10-14 11:09] LABS: Glucose 128 mg/dL (74-106)
== END ==
PROVIDERS: Urology; PCP Family Medicine; Visit Provider Internal Medicine
DX: E78.5 Hyperlipidemia, unspecified (principal); I10 Essential (primary) hypertension; I25.10 Atherosclerotic heart disease of native coronary artery without angina pectoris; K21.9 Gastro-esophageal reflux disease without esophagitis; R06.02 Shortness of breath; R06.00 Dyspnea, unspecified
CPT/HCPCS: 36415; 71046; 80048; 83880; 84484; 85025

== ENCOUNTER → 2019-10-19 08:12 | Outpatient (CLI) | payer MEDICARE, SELFPAY ==
--- NOTE | 2019-10-19 08:14 | US_ITS ---
PROCEDURE: US ABDOMEN COMPLETE CLINICAL INDICATION: HX DIGESTIVE DISEASE,GB STONES COMPARISON: No exams were available for comparison FINDINGS: PANCREAS: Unremarkable. No obvious mass or abnormal fluid collection. No ductal dilatation LIVER: No focal liver lesions demonstrated. Homogeneous echogenicity. No intrahepatic biliary ductal dilatation evident. There is appropriate direction of blood flow within a non dilated portal vein RIGHT KIDNEY: Unremarkable. Normal size and echogenicity. No hydronephrosis LEFT KIDNEY: Unremarkable. Normal size and echogenicity. No hydronephrosis GALLBLADDER: There are numerous gallstones. No gallbladder wall thickening pericholecystic fluid or biliary dilatation is evident. AORTA: No evidence of aneurysmal dilatation. SPLEEN: Unremarkable. Normal size and echogenicity ASCITES: None demonstrated. IMPRESSION: Cholelithiasis Dictated by: Gustavo Turner MD 10/19/2019 17:39 Electronically signed by Gustavo Turner MD in [facility] 10/19/2019 17:39
[2019-10-19 10:43] LABS: Anion Gap 13.3 mEq/L (5-15); Blood Urea Nitrogen 9 mg/dL (7-18); Calcium 9.3 mg/dL (8.5-10.1); Carbon Dioxide 28 mmol/L (21.0-32.0); Chloride 105 mmol/L (98-107); Creatinine,Serum 0.99 mg/dL (0.70-1.30); Estimated Glomerular Filt Rate 74 ml/min (>60); GFR (African American) 89 ML/MIN (>60); Glucose 133 mg/dL (74-106); Potassium 4.3 mmoL/L (3.5-5.1); Sodium 142 mmol/L (136-145)
== END ==
PROVIDERS: PCP Family Medicine; Visit Provider Family Medicine
DX: Z87.19 Personal history of other diseases of the digestive system (principal); I10 Essential (primary) hypertension
CPT/HCPCS: 36415; 76700; 80048

== ENCOUNTER → 2019-10-21 10:03 | Outpatient (CLI) | payer MEDICARE, SELFPAY | PROVIDERS: PCP Family Medicine; Visit Provider Family Medicine | DX: R93.89 Abnormal findings on diagnostic imaging of other specified body structures (principal) ==

== ENCOUNTER → 2019-10-26 10:06 | Outpatient (CLI) | payer MEDICARE, SELFPAY ==
--- NOTE | 2019-10-26 10:11 | CT_ITS ---
PROCEDURE: CT CHEST W CON CLINCAL INDICATION: ABNORMAL CHEST IMAGING COMPARISON: CT ANGIO CHEST from 09/10/2019 TECHNIQUE: IV Contrast: 75ml Optiray 350 Axial images obtained with sagittal and coronal reformats. All CT scans at the facility use one or more dose reduction, viz: automated exposure control, ma/kV adjustment per patient size (including targeted exams where dose is matched to indication, i.e. head), or iterative reconstruction technique. FINDINGS: HEART,AORTA,PULMONARY ARTERIES Unremarkable. MEDIASTINAL AND HILAR STRUCTURES: No mediastinal or hilar mass evident. No dominant adenopathy. There are few scattered small mediastinal lymph nodes. These are not significantly changed. Coronary artery stent and or calcification noted. LUNGS: There remains diffuse mild scattered ground-glass opacity of the upper lobes. This has shown some improvement compared to the previous exam. No suspicious masses or effusions are evident. Subpleural opacity is present in the right upper lobe anteriorly at 3 mm unchanged. There is some mild prominence of the interstitium in the lung bases. Upper abdominal images show no acute finding. Gallstones are present. IMPRESSION: 1. Persistent but slightly improved ground-glass opacification in the mid and upper lung zones. Interstitial pneumonitis/chronic interstitial lung disease is a consideration. 2. Cholelithiasis Dictated by: Gustavo Turner MD 10/27/2019 08:55 Electronically signed by Gustavo Turner MD in [facility] 10/27/2019 08:55
== END ==
PROVIDERS: PCP Family Medicine; Visit Provider Family Medicine
DX: R93.89 Abnormal findings on diagnostic imaging of other specified body structures (principal)
CPT/HCPCS: 71260; Q9967

== ENCOUNTER → 2019-12-16 12:48 | Outpatient (CLI) | payer MEDICARE, SELFPAY ==
--- NOTE | 2019-12-16 13:03 | CT_ITS ---
PROCEDURE: CT CHEST WO CON CLINICAL INDICATION: ABNORMAL CHEST IMAGING COMPARISON: CT CHEST W CON from 10/26/2019 TECHNIQUE: Axial images obtained with sagittal and coronal reformats. All CT scans at the facility use one or more dose reduction, viz: automated exposure control, ma/kV adjustment per patient size (including targeted exams where dose is matched to indication, i.e. head), or iterative reconstruction technique. FINDINGS: HEART AND MEDIASTINAL STRUCTURES: Coronary arterial calcifications are noted. There is moderate mediastinal lymphadenopathy not significantly changed over the interval. The. Lymphadenopathy with some associated calcification is seen in the pretracheal and precarinal regions and subcarinal regions. LUNGS AND PLEURAL SPACES: Extensive ground-glass opacities described previously are again noted. There has been an interval increase in ground-glass opacities in both lung bases. There is now an approximately 6 millimeter ground-glass nodule in the right lower lobe image 54 series 3 and a 3 millimeter ground-glass nodule in the right lower lobe abutting the pleural surface is seen on image 58 series 3. A4 5.3 millimeter indeterminate pleural-based pulmonary nodule 1 in the right upper lobe appears more prominent on the axial images possibly due to non comparable imaging planes. It is not significantly changed on sagittal images. There is aortic atherosclerosis with calcifications seen in the mesenteric and renal arteries. Ectasia of the infrarenal abdominal aorta to 2.4 centimeters is noted. There is no retroperitoneal hemorrhage. 4 BONY STRUCTURES: No acute bony abnormalities apparent. UPPER ABDOMEN: Multiple gallstones are noted without ancillary findings of acute cholecystitis. There are 3 separate cystic lesions of the pancreatic tail largest along the distal aspect of the pancreatic tail is approximately 16 millimeters. These are not significantly changed over the short interval. Pseudo cysts associated with previous episode of pancreatitis versus cystic neoplasms would be in the differential diagnosis. There is no acute pancreatitis or pancreatic ductal dilatation. 2 The lesions are suboptimally evaluated on today's noncontrast exam. Consider correlation with serum tumor markers for pancreatic malignancy and at least 3 to six-month follow-up exam with pancreatic protocol imaging for additional assessment. IMPRESSION: Interval progression of interstitial pneumonitis. Active interstitial lung disease is suspected. New 6 and 3 millimeter ground-glass nodules right lung. Six-month follow-up exam is recommended. Coronary arterial calcification. Three separate hypodense lesions of the pancreas unchanged from the previous exam. None fulfill strict criteria for benign cysts. Pseudocysts versus cystic neoplasms would have to be considered. The short-term interval stability favors benign etiology. Cholelithiasis without ancillary findings of acute cholecystitis. Dictated by: Brice Sandoval 12/16/2019 14:03 Electronically signed by Brice Sandoval in [place] 12/16/2019 14:03
== END ==
PROVIDERS: PCP Family Medicine; Visit Provider Internal Medicine
DX: R93.89 Abnormal findings on diagnostic imaging of other specified body structures (principal)
CPT/HCPCS: 71250

== ENCOUNTER 2020-05-16 06:48 | Day surgery (SDC) | payer MEDICARE, SELFPAY ==
[2020-05-10 14:09] VITALS: BMI 23.7
[2020-05-16 07:10] VITALS: BP 155/88; PULSE 62; RESP 18; TEMP 36.2; O2SAT 95
[2020-05-16 07:26] LABS: POC Glucose,Bedside 145 (70-110)
--- NOTE | 2020-05-16 07:58 | HMH.ANESCL ---
[facility] Anesthesia Checklist - Patient Identification Patient Identification: Arm Band - Structural Data Admitted From: Home Planned Operative Procedure/s: egd/colonoscopy Consent for Planned Operative Procedure(s) Verified: Yes Verified Documents: Surgical Consent, History and Physical - NPO Status Verified Time NPO: 00:00 - Additional verifications Anesthesia Reactions: No - Airway Assessment C-Spine Mobility Assessed: Yes (mp2) TMJ Mobility Assessed: Yes Dentition: Good Dentition - Neurological Assessment Level of Consciousness: Awake, Alert - Anesthesia Plan Anesthesia Risk discussed: Yes Anesthesia Plan: Verified ASA Class: III Anesthesia Type: MAC [facility] History I have reviewed the patient's past medical history: Yes Medical History: Reports:: Cancer (prostate), Coronary Artery Disease, Diabetes Mellitus Type 2, Gastroesophageal Reflux Disease(GERD), Hyperlipidemia, Hypertension, MRSA (l foot) Denies:: Diabetes Mellitus Type 1, Internal Pacemaker, Seizures *Have you ever received a pneumonia vaccine?: No *Have you received a flu vaccine this season?: Yes Anesthesia experience/problems:: nac Other Surgeries: Yes: Cardiac Catheterization, Coronary Stent, Other. No: Pacemaker - *Social History Last grade of school completed: Some college Smoking Status: Never smoker Alcohol Intake: never Substance Use Type: denies use *Occupational Status:: retired Housing: house Household Members: spouse *Travel in the last 8 weeks: Inside the [place] Family Hx:: Unable to obtain
[2020-05-16 08:08] LABS: Coronavirus 19 IgG Antibody Negative (Negative); Coronavirus 19 IgM Antibody Negative (Negative)
[2020-05-16 08:19] VITALS: O2SAT 97
--- NOTE | 2020-05-16 08:25 | P.PCN_ITS ---
[facility] Procedure Note Procedure Note:: Upper Endoscopy Procedure Report: Esophagogastroduodenoscopy with cold biopsies Endoscopost: Shahram Bradford II, MD Referring Physician: Aura Escalante MD Date of Procedure: May 16, 2020 Equipment: Olympus GIF 180 standard upper endoscope Sedation: MAC sedation Indications: Mr. 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 He does have small esophageal varices. He was never a heavy drinker. The patient did have bilateral pneumonia in August 2019. He was seen by mandi gallegos. He continued to have sinus drainage that would keep him up at night. He did see ENT (Dr. Maryjo Rodriguez) in [place] and was given a compounded medication that has cleared up his coughing, expectoration of mucus and sinus issues. He does get some globus sensation but reports no heartburn, reflux, bloating, nausea, early satiety or dysphagia. Procedure: Prior to the procedure, a history and physical exam was performed, and patient's medications and allergies were reviewed. The risks, benefits and alternatives of the sedation and procedure were discussed with the patient. All questions were answered and informed consent was obtained. The patient was brought to the procedure room. Patient identification and proposed procedure were verified by the physician and the nurse. The patient was placed in a left lateral decubitus position and the scope was passed under direct vision. Throughout the procedure, the patient's blood pressure, pulse, and oxygen saturations were monitored continuously. The upper GI endoscopy was accomplished without difficulty. The patient tolerated the procedure well. Findings: The scope was passed directly into the upper esophagus and advanced to the third portion of the duodenum. The post bulbar duodenum and duodenal bulb were normal with normal mucosa and conniventes. The scope was withdrawn through a normal duodenal bulb and pylorus into the stomach. There was some bile reflux with linear reactive gastropathy of the antrum and body. The remainder of the body and fundus had some very mild chronic gastritis but no significant portal gastropathy and there were no gastric fundic varices. Upon retroflexion there was a very small 1 to 2 cm hiatal hernia. Cold biopsies were taken from the gastric antrum. The scope was then withdrawn into the esophagus. There was a serrated Z line but no evidence of reflux esophagitis. Biopsies were taken at the GE junction. There were no significant esophageal varices. The remainder of the esophageal mucosa was normal. Impression: 1. Bile reflux with linear reactive gastropathy and very mild chronic gastritis Plan: There were no significant findings of portal hypertension. There was evidence of duodenal reflux and mild gastroesophageal reflux. I will discuss findings with the patient and family and follow-up the biopsies. I will proceed with surveillance colonoscopy.
--- NOTE | 2020-05-16 08:35 | HMH.PROC ---
[facility] Procedure Note Procedure Note:: Colonoscopy Procedure Report: Colonoscopy with cold snare polypectomy Endoscopist: Shahram Bradford II, MD Referring physician: Aura Escalante MD Date of Procedure: May 16, 2020 Equipment: Olympus 180 variable stiffness pediatric colonoscope Sedation: MAC sedation Indication: Mr. Hollis is a 74-year-old gentleman who is here for follow-up screening/surveillance colonoscopy secondary to a personal history of colon polyps. The patient had a normal colonoscopy in November 2000. His last colonoscopy in May 2016 revealed for colon polyps (tubular adenomas x4) which were removed. He reports no abdominal pain, weight loss, change in his bowel habits or rectal bleeding. He reports no family history of colon cancer. The patient did have a CAT scan of the abdomen that showed some bilateral groundglass opacity indicative of chronic interstitial lung disease. Procedure: Prior to the procedure, a history and physical exam was performed, and patient's medications and allergies were reviewed. The risks, benefits and alternatives of the sedation and procedure were discussed with the patient. All questions were answered and informed consent was obtained. The patient was brought to the procedure room. Patient identification and proposed procedure were verified by the physician and the nurse. The patient was placed in a left lateral decubitus position and the scope was passed under direct vision. Throughout the procedure, the patient's blood pressure, pulse, and oxygen saturations were monitored continuously. The colonoscopy was accomplished without difficulty. The patient tolerated the procedure well. Findings: On digital rectal examination there was normal rectal tone. There were no external hemorrhoids. The colonoscope was introduced through the anal canal to the rectum and advanced to the cecum. The ileocecal valve and appendiceal orifice were identified. The scope was advanced a short distance into the ileum which appeared grossly normal. The scope was then withdrawn into the colon. There were a total of 8 colon polyps (cecum x1 (4 mm), ascending x4 (3, 3, 4 and 6 mm), transverse x1 (5 mm) and sigmoid x2 (3 and 5 mm)). All of these polyps were removed via cold snare polypectomy. There were scattered diverticuli throughout the descending and sigmoid colon (LEFT colon). The rectum itself was normal. Upon retroflexion within the rectum there were grade 1-2 internal hemorrhoids. The preparation was excellent throughout with Keystone Preparation Score of 9. The cecal time was 12 minutes. Impression: 1. Colonic polyps x8 2. Left-sided diverticulosis 3. Grade 1-2 internal hemorrhoids Plan: I will follow up the polyp pathology and recommend repeat colonoscopy again in 3-5 years based upon the polyp histology. I would encourage bulk fiber supplementation on a long-term daily maintenance basis.
[2020-05-16 08:58] VITALS: BP 120/79; PULSE 60; RESP 12; TEMP 36.5; O2SAT 95
[2020-05-16 09:08] VITALS: BP 149/84; PULSE 60; RESP 14; O2SAT 96
[2020-05-16 09:18] VITALS: BP 156/81; PULSE 57; RESP 16; O2SAT 97
[2020-05-16 09:28] VITALS: BP 156/81; PULSE 60; RESP 16; TEMP 36.5; O2SAT 96
== END 2020-05-16 09:30 | disposition home or self-care (01) ==
LOC: OUTP 06:50
PROVIDERS: PCP Family Medicine; Visit Provider Internal Medicine Gastroenterology
PROC: 0DJ08ZZ Inspection of Upper Intestinal Tract, Via Natural or Artificial Opening Endoscopic (ICD-10-PCS; CPT 43235; principal; 2020-05-16 08:00)
DX: Z12.11 Encounter for screening for malignant neoplasm of colon (principal); Z86.010 Personal history of colon polyps; K63.5 Polyp of colon; K57.30 Diverticulosis of large intestine without perforation or abscess without bleeding; K64.0 First degree hemorrhoids; K21.9 Gastro-esophageal reflux disease without esophagitis; K31.9 Disease of stomach and duodenum, unspecified; K29.50 Unspecified chronic gastritis without bleeding; K75.81 Nonalcoholic steatohepatitis (NASH); K74.60 Unspecified cirrhosis of liver; Z85.46 Personal history of malignant neoplasm of prostate; Z86.14 Personal history of Methicillin resistant Staphylococcus aureus infection
CPT/HCPCS: 43239; 45385; 82962; 86328; 88305; J2704

== ENCOUNTER 2020-06-22 16:58 | Emergency (ER) | payer MEDICARE, SELFPAY ==
--- NOTE | 2020-06-22 16:54 | ECG_ITS ---
APPROVED REPORT Exam: Resting ECG HR:52 bpm ECG Measurements Heart Rate 52 AXES NH 180 P 63 QRSd 94 QRS 51 QT 440 T 76 QTc 409 Conclusion Sinus bradycardia Moderate voltage criteria for LVH, may be normal variant Borderline ECG Electronically signed by : Andrew Sloan, 06/24/2020 13:51:55
[2020-06-22 16:59] VITALS: BP 203/98; PULSE 59; RESP 18; TEMP 36.3; O2SAT 94; BMI 24.4
--- NOTE | 2020-06-22 17:01 | XR_ITS ---
PROCEDURE: XR CHEST 2V CLINICAL HISTORY: dizziness COMPARISON: CR XR CHEST 2V from 09/10/2019 CR XR CHEST 2V from 09/12/2019 CR XR CHEST 2V from 10/14/[address] CHEST WO CON from 12/16/2019 FINDINGS: Borderline cardiomegaly without failure. The there are increased markings overlying the anterior aspect of the heart on the lateral view and may be related to pericardial fat pad. Stability may be confirmed with follow-up. No acute bony abnormalities. IMPRESSION: Borderline cardiomegaly. Increased markings overlying the anterior aspect of the heart which may be related to pericardial fat pad and may be confirmed with follow-up Dictated by: Gustavo Turner MD 06/23/2020 11:28 Gustavo uTrner MD in [place] 06/23/2020 11:28
[2020-06-22 17:05] VITALS: BMI 24.4
--- NOTE | 2020-06-22 17:06 | CT_ITS ---
PROCEDURE: CT HEAD/BRAIN WO CON CLINICAL INDICATION: off balance Right arm weakness, imbalance, stroke protocol COMPARISON: No exams were available for comparison TECHNIQUE: Axial images obtained. All CT scans at the facility use one or more dose reduction, viz: automated exposure control, ma/kV adjustment per patient size (including targeted exams where dose is matched to indication, i.e. head), or iterative reconstruction technique. FINDINGS: No midline shift, mass effect, intracranial hemorrhage, hydrocephalus, or extra-axial fluid collection is evident. There is generalized atrophy with hypoattenuation of the periventricular white matter consistent with microangiopathic changes. The calvarium has an unremarkable appearance. No mastoid effusion. No sinus air-fluid level. IMPRESSION: No acute intracranial finding Dictated by: Gustavo Turner MD 06/23/2020 07:16 Gustavo Turner MD in [place] 06/23/2020 07:16
--- NOTE | 2020-06-22 17:07 | HMH.EDGENADL ---
ED Disposition Clinical Impression: TIA (transient ischemic attack), Essential hypertension Disposition: Home, Self-Care Condition on Discharge: Good Additional Instructions: Increase losartan to 50 mg each evening, begin this evening. Start aspirin 81 mg daily. Continue Plavix and continue your other medications. See Dr. Escalante in her office tomorrow or Saturday. Return to the emergency department if symptoms worsen. Referrals: PCP,No [Non-Staff] - - Critical Care Critical Care Time: No Attestation: On , the high probability of a clinically significant, sudden or life threatening deterioration of the following system(s) required my full and direct attention, intervention and personal management. The time I documented below is in addition to time spent performing reported procedures but includes the following listed in this critical care notation. Medical Decision Making - Scooby Inquiry Pt receiving controlled substance: No Vital Signs: 06/22/20 16:59 06/22/20 17:30 Temperature 97.4 F L Temperature Source Oral Pulse Rate [Apical] 59 L 54 L Respiratory Rate 18 Blood Pressure [Right Arm] 203/98 H 197/98 H Blood Pressure Mean [Right Arm] 133 131 Blood Pressure Source [Right Arm] Automatic Cuff Automatic Cuff Blood Pressure Position [Right Arm] Sitting Sitting 02 Sat by Pulse Oximetry 94 L 96 Oxygen Delivery Method Room Air Room Air - Lab Data Lab Results 06/22/20 17:00: WBC 4.5 L, RBC 4.34 L, Hgb 14.0 L, Hct 44.2, MCV 102.0 H, MCH 32.3 H, MCHC 31.7 L, RDW 12.6, Plt Count 174, MPV 8.2, Neut % (Auto) 70.1, Lymph % (Auto) 18.9, [place] % (Auto) 8.3, Eos % (Auto) 2.2, Baso % (Auto) 0.5, Neut # (Auto) 3.2, Lymph # (Auto) 0.9, [place] # (Auto) 0.4, Eos # (Auto) 0.1, Baso # (Auto) 0.0 06/22/20 17:00: Sodium 140, Potassium 3.9, Chloride 105, Carbon Dioxide 28, Anion Gap 10.9, BUN 15, Creatinine 0.90, Estimated Creat Clear 75, Estimated GFR 82, Est GFR ( Amer) 100, Glucose 177 H, Calcium 9.7, Troponin I < 0.01 06/22/20 17:00: PT 11.5, INR 1.04, APTT 25.0 Result diagrams: 06/22/20 17:00 06/22/20 17:00 Orders (Tests/Meds): ED MEDICATIONS Discontinued Medications Generic Name Dose Route Start Last Admin Trade Name Nery PRN Reason Stop Dose Admin Aspirin 81 mg 06/22/20 18:14 Aspirin 81mg Chewable Tablet PO 06/22/20 18:15 ONCE ONE ORDERS Category Date Time Status CT head/brain wo con Stat Cat Scan 06/22/20 17:06 Taken Chest XR 2 view (NOT portable) [XR chest 2V] Stat Exams 06/22/20 17:01 Taken - Radiology Data #1 Image(s): Chest Image Reviewed: Yes I reviewed the patient's radiology image Chronic fibrotic changes, no acute process - CT Data CT Scan: Head Time Received: 17:29 (vRad) ED CT Reviewed: Yes: I discussed the CT results w/the radiologist Preliminary Findings: Normal/NAD - ECG Data Tracing #1 EKG interpreted by Mir Lundberg MD: Rhythm: sinus bradycardia Rate: 52 [place]: normal Ectopy: none Conduction: normal ST Segment Changes: none T Wave Changes: none Q Waves: none No evidence of acute ischemia or injury LVH - Physician Consults Physician Consulted: Ava Time: 18:09 Reason -: Pt condition Comment/Response: Discharge patient. Follow-up in her office tomorrow or Saturday. Start aspirin 81 mg/day, continue Plavix. Increase losartan to 50 mg each day. Medical Decision Narrative: Symptoms are suggestive of possible TIA. 6:00 PM: call placed to Dr. Escalante. General Adult HPI - General Stated complaint: Right arm heaviness, Dizzy Time Seen by Provider: 06/22/20 17:07 - History of Present Illness HPI narrative: For 2 to 3 weeks he has had episodes where he feels off balance and nauseated/queasy. States he has been catching his toe on the stairs which is unusual for him. Today while at [facility] he had an episode with similar symptoms as well as his right arm feeling heavy, vision being blurry. He did not
--- NOTE | 2020-06-22 17:08 | PC.NURSE ---
pt to CT
[2020-06-22 17:13] LABS: Basophils % 0.5 % (0.1-2.0); Eosinophils # 0.1 K/mm3 (0.0-0.4); Eosinophils % 2.2 % (0.1-12.0); Hematocrit 44.2 % (42.0-52.0); Lymphocytes # 0.9 K/mm3 (0.7-4.5); Lymphocytes % 18.9 % (10-50); Mean Corpuscular HGB Conc 31.7 g/dL (31.8-35.4); Mean Corpuscular Hemoglobin 32.3 pg (27.0-31.2); Mean Platelet Volume 8.2 fl (7.4-10.4); Monocytes # 0.4 K/mm3 (0.1-1.0); Monocytes % 8.3 % (1.7-9.3); Neutrophils # 3.2 K/mm3 (1.8-7.8); Neutrophils % 70.1 % (37.0-80.0); Platelet Count 174 K/mm3 (142-424); Red Blood Count 4.34 M/mm3 (4.60-6.20); Red Cell Distribution Width 12.6 % (11.5-17.5); White Blood Count 4.5 K/mm3 (4.8-10.8)
[2020-06-22 17:17] LABS: Chloride 105 mmol/L (98-107); Potassium 3.9 mmoL/L (3.5-5.1); Sodium 140 mmol/L (136-145)
[2020-06-22 17:20] LABS: Anion Gap 10.9 mEq/L (5-15); Blood Urea Nitrogen 15 mg/dl (9-20); Carbon Dioxide 28 mmol/L (22.0-30.0); Creatinine Clearance Estimated 75 mL/min (50-200); Estimated Glomerular Filt Rate 82 ml/min (>60); GFR (African American) 100 ML/MIN (>60)
[2020-06-22 17:21] LABS: Calcium 9.7 mg/dl (8.4-10.2); Glucose 177 mg/dl (74-100)
--- NOTE | 2020-06-22 17:29 | PC.NURSE ---
ORIANA called about head CT
[2020-06-22 17:30] VITALS: BP 197/98; PULSE 54; O2SAT 96
[2020-06-22 17:39] LABS: Troponin I < 0.01 ng/ml (0.00-0.034)
[2020-06-22 17:46] LABS: INR 1.04 (0.9-1.1); Prothrombin Time 11.5 seconds (9.4-11.8)
--- NOTE | 2020-06-22 18:06 | PC.NURSE ---
TANNER ARGUETA speaking with Dr. Escalante-pts pcp
--- NOTE | 2020-06-22 18:34 | PC.NURSE ---
pt reports he will take a Aspirin when he gets home.
[2020-06-22 18:39] VITALS: BP 190/96; PULSE 57; RESP 19; TEMP 36.3; O2SAT 97
== END 2020-06-22 18:40 | disposition home or self-care (01) ==
PROVIDERS: Emergency Provider Emergency Medicine; PCP Family Medicine
DX: G45.8 Other transient cerebral ischemic attacks and related syndromes (principal); I10 Essential (primary) hypertension; E11.65 Type 2 diabetes mellitus with hyperglycemia; I25.10 Atherosclerotic heart disease of native coronary artery without angina pectoris; K21.9 Gastro-esophageal reflux disease without esophagitis; E78.5 Hyperlipidemia, unspecified; Z79.899 Other long term (current) drug therapy
CPT/HCPCS: 70450; 71046; 80048; 84484; 85025; 85610; 85730; 93005; 99283

== ENCOUNTER 2020-06-27 21:06 | Emergency (ER) | payer MEDICARE, SELFPAY ==
[2020-06-27 21:23] VITALS: BP 155/81; PULSE 58; RESP 17; TEMP 36.8; O2SAT 96; BMI 23.1
[2020-06-27 22:08] VITALS: BP 164/79; PULSE 64; RESP 16; O2SAT 94
--- NOTE | 2020-06-27 22:11 | CT_ITS ---
Procedure: CT ANGIO NECK CT angio head CLINICAL HISTORY: eye pain Left eye pain, tingling bilateral hands COMPARISON: CT CT ANGIO HEAD from 06/27/2020 TECHNIQUE: IV Contrast: 100ml Optiray 350 Axial images obtained with sagittal and coronal reformats. All CT scans at the facility use one or more dose reduction, viz: automated exposure control, ma/kV adjustment per patient size (including targeted exams where dose is matched to indication, i.e. head), or iterative reconstruction technique. FINDINGS: Aortic arch: Nonocclusive or stenotic calcific plaque. There is a bovine origin the left carotid artery. Right carotid: Eccentric calcific plaque at the bulb and proximal ICA with less than 25 percent stenosis. The right internal carotid cervical portion has an unremarkable appearance. No dissection or ulcerations. Left carotid: Bovine origin. Eccentric calcific plaque is present at the bulb and proximal left ICA with approximately 40 percent eccentric stenosis involving the proximal left ICA. No ulcerations. No dissection. Patent bilateral vertebral arteries with left-sided dominance. No stenosis or dissection CTA head: No aneurysm or major intracranial occlusive process evident. No evidence of arteriovenous malformation. No enhancing lesions. Delayed images show no evidence of sinus thrombosis. IMPRESSION: 1. CTA of the neck demonstrates some eccentric calcific plaque in the proximal ICAs with less than 25 percent stenosis of the right ICA and 40 percent stenosis of the proximal left ICA. No significant stenotic lesion ulceration or dissection evident. 2. Unremarkable CTA of the brain. Dictated by: Gustavo Turner MD 06/28/2020 10:09 Gustavo Turner MD in [place] 06/28/2020 10:09
[2020-06-27 22:20] LABS: Basophils % 0.2 % (0.1-2.0); Eosinophils # 0.1 K/mm3 (0.0-0.4); Eosinophils % 1.8 % (0.1-12.0); Hematocrit 41.9 % (42.0-52.0); Hemoglobin 13.4 g/dL (14.1-18.0); Lymphocytes # 0.9 K/mm3 (0.7-4.5); Lymphocytes % 14.8 % (10-50); Mean Corpuscular HGB Conc 31.9 g/dL (31.8-35.4); Mean Corpuscular Hemoglobin 32.2 pg (27.0-31.2); Mean Corpuscular Volume 100.7 fl (80-94); Mean Platelet Volume 8.8 fl (7.4-10.4); Monocytes # 0.5 K/mm3 (0.1-1.0); Neutrophils # 4.5 K/mm3 (1.8-7.8); Neutrophils % 75.3 % (37.0-80.0); Platelet Count 172 K/mm3 (142-424); Red Blood Count 4.16 M/mm3 (4.60-6.20); Red Cell Distribution Width 12.7 % (11.5-17.5); White Blood Count 5.9 K/mm3 (4.8-10.8)
[2020-06-27 22:25] LABS: Chloride 103 mmol/L (98-107); Sodium 139 mmol/L (136-145)
[2020-06-27 22:26] LABS: Potassium 3.8 mmoL/L (3.5-5.1)
[2020-06-27 22:28] LABS: Alanine Aminotransferase 18 U/L (12-78); Albumin Level 3.8 g/dl (3.5-5.0); Alkaline Phosphatase 49 U/L (38-126); Anion Gap 9.8 mEq/L (5-15); Aspartate Amino Transferase 34 U/L (17-59); Bilirubin,Total 1.3 mg/dl (0.2-1.3); Blood Urea Nitrogen 11 mg/dl (9-20); Carbon Dioxide 30 mmol/L (22.0-30.0); Creatinine Clearance Estimated 71 mL/min (50-200); Estimated Glomerular Filt Rate 82 ml/min (>60); GFR (African American) 100 ML/MIN (>60); Globulin 3.7 g/dL (1.3-3.2); Total Protein,Serum 7.5 g/dl (6.3-8.2)
[2020-06-27 22:29] LABS: Calcium 9.4 mg/dl (8.4-10.2); Glucose 155 mg/dl (74-100)
--- NOTE | 2020-06-27 22:37 | PC.NURSE ---
patient back from CT at this time
[2020-06-27 22:48] VITALS: BP 158/74; PULSE 64; RESP 17; O2SAT 95
[2020-06-27 23:02] VITALS: BP 166/73; PULSE 63; RESP 18; O2SAT 95
--- NOTE | 2020-06-27 23:53 | HMH.EDEYEP ---
ED Disposition Clinical Impression: Left eye pain Disposition: Home, Self-Care Condition on Discharge: Good Instructions: DI for Eye Pain Additional Instructions: see eye dr singh for eval Referrals: Aura Escalante [Primary Care Provider] - - Critical Care Critical Care Time: No Attestation: On 06/27/20, the high probability of a clinically significant, sudden or life threatening deterioration of the following system(s) required my full and direct attention, intervention and personal management. The time I documented below is in addition to time spent performing reported procedures but includes the following listed in this critical care notation. Medical Decision Making - Medical Records Medical records reviewed: Yes: I reviewed the patient's medical records. - Scooby Inquiry Pt receiving controlled substance: No Vital Signs: 06/27/20 21:23 06/27/20 22:08 06/27/20 22:48 Temperature 98.3 F Temperature Source Oral Pulse Rate [Right Brachial] 58 L 64 64 Respiratory Rate 17 16 17 Blood Pressure [Right Arm] 155/81 H 164/79 H 158/74 H Blood Pressure Mean [Right Arm] 105 107 102 Blood Pressure Source [Right Arm] Automatic Cuff Automatic Cuff Blood Pressure Position [Right Arm] Sitting Sitting 02 Sat by Pulse Oximetry 96 94 L 95 Oxygen Delivery Method Room Air Room Air Room Air 06/27/20 23:02 Temperature Temperature Source Pulse Rate [Right Brachial] 63 Respiratory Rate 18 Blood Pressure [Right Arm] 166/73 H Blood Pressure Mean [Right Arm] 104 Blood Pressure Source [Right Arm] Blood Pressure Position [Right Arm] 02 Sat by Pulse Oximetry 95 Oxygen Delivery Method - Lab Data Lab results reviewed: Yes: I reviewed the patient's lab results. Lab Results 06/27/20 22:10: WBC 5.9, RBC 4.16 L, Hgb 13.4 L, Hct 41.9 L, MCV 100.7 H, MCH 32.2 H, MCHC 31.9, RDW 12.7, Plt Count 172, MPV 8.8, Neut % (Auto) 75.3, Lymph % (Auto) 14.8, [place] % (Auto) 8.0, Eos % (Auto) 1.8, Baso % (Auto) 0.2, Neut # (Auto) 4.5, Lymph # (Auto) 0.9, [place] # (Auto) 0.5, Eos # (Auto) 0.1, Baso # (Auto) 0.0 06/27/20 22:10: Sodium 139, Potassium 3.8, Chloride 103, Carbon Dioxide 30, Anion Gap 9.8, BUN 11, Creatinine 0.90, Estimated Creat Clear 71, Estimated GFR 82, Est GFR ( Amer) 100, Glucose 155 H, Calcium 9.4, Total Bilirubin 1.3, AST 34, ALT 18, Alkaline Phosphatase 49, Total Protein 7.5, Albumin 3.8, Globulin 3.7 H, Albumin/Globulin Ratio 1.0 L Result diagrams: 06/27/20 22:10 06/27/20 22:10 Orders (Tests/Meds): ED MEDICATIONS Discontinued Medications Generic Name Dose Route Start Last Admin Trade Name Freq PRN Reason Stop Dose Admin Ioversol 100 ml 06/27/20 22:34 06/27/20 22:36 Ioversol-350 (74%) 100ml Vial IV 06/27/20 22:35 100 ml ONCE ONE Administration Protocol Sodium Chloride 40 ml 06/27/20 22:34 06/27/20 22:36 0.9 % Sodium Chloride 50 Ml Vial IV 06/27/20 22:35 40 ml ONCE ONE Administration Sodium Chloride 10 ml 06/27/20 22:34 06/27/20 22:36 Sodium Chloride 0.9% 10ml Syr (Rad Only) IV 06/27/20 22:35 10 ml ONCE ONE Administration ORDERS Category Date Time Status CT angio head Stat Cat Scan 06/27/20 22:[address] angio neck Stat Cat Scan 06/27/20 22:11 Taken - CT Data CT Scan: Other (cta/head/neck -ok) Time Received: 00:[address] Reviewed: Yes: I have viewed the radiologist's interpretation Preliminary Findings: Normal/NAD Eye Problem HPI - General Chief complaint: Eye Problems Stated complaint: TIA, R eye pain, [place] Time Seen by Provider: 06/27/20 23:00 Mode of Arrival: Ambulatory Source of Information: Patient, Spouse, Medical Record Limitations: No Limitations Description of Symptoms (Recalled from ER Triage Doc. by RN): Patient reports left eye pain that started about an hour ago. Patient reports he was seen on saturday in the ED for possible TIA or possible vertigo, negative findings and discharged home. patient reports he has felt fin
[2020-06-28 00:05] VITALS: BP 177/84; PULSE 63; RESP 18; O2SAT 95
[2020-06-28 00:14] VITALS: BP 167/87; PULSE 63; RESP 17; TEMP 36.8; O2SAT 96
== END 2020-06-28 00:23 | disposition home or self-care (01) ==
PROVIDERS: Emergency Provider Emergency Medicine; PCP Family Medicine
DX: H57.12 Ocular pain, left eye (principal); E11.65 Type 2 diabetes mellitus with hyperglycemia; I25.10 Atherosclerotic heart disease of native coronary artery without angina pectoris; E78.5 Hyperlipidemia, unspecified; K21.9 Gastro-esophageal reflux disease without esophagitis; Z79.899 Other long term (current) drug therapy; I10 Essential (primary) hypertension
CPT/HCPCS: 70496; 70498; 80053; 85025; 99283; Q9967

== ENCOUNTER → 2020-06-28 09:49 | Outpatient (CLI) | payer MEDICARE, SELFPAY ==
--- NOTE | 2020-06-28 09:52 | CA_ITS ---
APPROVED REPORT EXAM: Comprehensive 2D, Doppler, and color-flow Echocardiogram Visitor Services Associate: Valeri Castro CRT Ht: 6 ft 0 in Wt: 173lbs BSA: 2.00 BP: 197/98 mmHg Indications: CAD, Hyperlipidemia, Hypertension/HDD, GERD, CA, STENT, CABG 10/05 2D Dimensions LVOT 2.62 cm (M/F) 1.5-2.5 M-Mode Dimensions RVDd 1.87 cm (0.9-2.6) LVDd 4.68 cm (3.5-5.7) LVDs 2.93 cm (3.5-5.7) IVSd 2.00 cm (0.6-1.1) PWd 0.87 cm (0.6-1.1) EF (Teich) 67.40% FS 37.40% EDV (Teich) 101.30 mL ESV (Teich) 33.00 mL LV Diastology E/A Ratio 0.72 Mitral Valve MV A Velocity 82.00 (40-130 cm/s) Left Ventricle Left atrium is mildly enlarged, left ventricle is normal size, mild concentric left ventricular hypertrophy, visually estimated ejection fraction 55% with no regional wall motion abnormality, grade 1 diastolic dysfunction seen without tissue Doppler evidence of raise left atrial pressure. Right Ventricle Right atrium and right ventricular normal size and contractility. Aortic Valve Aortic valve is minimally thickened and fibrosed, there is no aortic stenosis or aortic insufficiency. Mitral Valve Mitral valve leaflets are minimally thickened, there is mild mitral regurgitation. Tricuspid Valve Tricuspid valve is grossly normal, there is mild tricuspid regurgitation, tricuspid regurgitation jet velocity is inadequate for calculation of the right ventricular systolic pressure. Pulmonic Valve Pulmonic valve is poorly visualized. Great Vessels Aortic root is normal size. Pericardium No significant pericardial effusion noted. Conclusion 1. Mildly enlarged left atrium, normal left ventricular size, mild concentric left ventricular hypertrophy, visually estimated ejection fraction 55% with no regional wall motion abnormality, grade 1 diastolic dysfunction seen without tissue Doppler evidence of raise left atrial pressure. 2. Mild mitral and tricuspid regurgitation. 3. No significant pericardial effusion noted. Electronically signed by : Luca Vogt, 06/28/2020 21:09:35
--- NOTE | 2020-06-28 09:52 | CA_ITS ---
APPROVED REPORT Varnish Remover: ABRAHAM Laterality: Bilateral Study Quality: Excellent Indications: TIA HTN HLP Doppler Spectral Velocity Analysis dICA (R) 60.70/16.10 cm/s dICA (L) 62.60/18.50 cm/s Aixa (R) 64.60/14.40 cm/s Aixa (L) 63.80/16.80 cm/s pICA (R) 65.70/13.80 cm/s pICA (L) 82.00/16.00 cm/s dCCA (R) 82.20/15.70 cm/s dCCA (L) 75.30/16.30 cm/s mCCA (R) 70.20/14.20 cm/s pCCA (L) 71.90/10.90 cm/s pCCA (R) 74.40/11.30 cm/s Vert (L) 48.20/13.30 cm/s Vert (R) 51.30/6.20 cm/s ICA/CCA 1.10 ICA/CCA 0.80 Findings Duplex evaluation demonstrates stenosis of the right proximal internal carotid artery <20% with PSV <140 cm/sec, EDV <100 cm/sec, and IC/CC Ratio <4.0.Duplex evaluation demonstrates stenosis of the left proximal internal carotid artery in the range of 20-49% with PSV <140 cm/sec, EDV <100 cm/sec, and IC/CC Ratio <4.0.Antegrade flow seen bilateral vertebral arteries. Conclusion Duplex evaluation demonstrates stenosis of the right proximal internal carotid artery <20% with PSV <140 cm/sec, EDV <100 cm/sec, and IC/CC Ratio <4.0.Duplex evaluation demonstrates stenosis of the left proximal internal carotid artery in the range of 20-49% with PSV <140 cm/sec, EDV <100 cm/sec, and IC/CC Ratio <4.0.Antegrade flow seen bilateral vertebral arteries. Electronically signed by : Gustavo Turner MD 06/28/2020 17:51:41
== END ==
PROVIDERS: PCP Family Medicine; Visit Provider Family Medicine
DX: Z86.73 Personal history of transient ischemic attack (TIA), and cerebral infarction without residual deficits (principal)
CPT/HCPCS: 93306; 93880

== ENCOUNTER 2020-07-12 10:02 | Emergency (ER) | payer MEDICARE, SELFPAY ==
[2020-07-12 10:11] VITALS: BP 150/85; PULSE 64; RESP 17; TEMP 36.8; O2SAT 98; BMI 23.1
--- NOTE | 2020-07-12 10:40 | HMH.EDGENADL ---
ED Disposition Clinical Impression: Pain of right lower extremity Disposition: Home, Self-Care Condition on Discharge: Good Additional Instructions: Continue gabapentin. Prednisone as prescribed for 5 days. Norman as needed at night for pain to aid in sleep. Follow-up with your primary care doctor soon as possible. Additional instructions for CONTROLLED SUBSTANCES: You have been prescribed a medication that is a controlled substance. Controlled substances include pain medications known as opiates and sedative nerve medications known as benzodiazepines. Tramadol, fioricet, and gabapentin are also controlled substances. Some common opiates include: Codeine (such as Tylenol #3) Hydrocodone (Vicodin, Lortab, Lorcet, Norman) Oxycodone (Percocet, Percodan, Oxycodone, Oxy IR) Some common benzodiazepines include: Diazepam (Valium) Lorazepam (Ativan) Alprazolam (Xanax) Clonazepam (Klonopin) Oxazepam (Serax) All of these controlled substances are highly addictive and frequently abused. Misuse can and frequently does lead to addiction as well as overdose and . Medication should be stored in a locked cabinet or other secure storage unit. Do not store the medication in a motor vehicle. Short term supplies, 3 days or less, are prescribed because of the highly addictive nature of the medication. Any of the controlled substance medication NOT taken should be disposed of properly and NOT SAVED. The recommended method of disposing of unused medications is: Place the medicines in a sealable plastic bag. If the medicine is a solid, crush it or add water to dissolve it. Add something undesirable (cat litter, coffee grounds, etc.) Dispose of sealed bag in household trash Do not flush or pour unused medicines down a sink or drain. Controlled substances should not be shared, given away or sold. Because of the addictive nature and frequent abuse, these medications are sometimes stolen. These medications should be kept in a safe place where they cannot be stolen. Do not keep them in your car or purse. Lost or stolen prescriptions for controlled substances WILL NOT BE REFILLED in this emergency department, regardless of whether a police report was filed. Prescriptions: Hydrocod/Acet 5/325 mg [Norman 5/325mg tablet] 1 tab PO HSP PRN #8 tab PRN Reason: Pain Transmission Status: Sent to [facility] predniSONE [Prednisone 20mg Tab] 20 mg PO BID #10 tab Transmission Status: Pending to [facility] Referrals: Aura Escalante [Primary Care Provider] - - Critical Care Critical Care Time: No Attestation: On 07/12/20, the high probability of a clinically significant, sudden or life threatening deterioration of the following system(s) required my full and direct attention, intervention and personal management. The time I documented below is in addition to time spent performing reported procedures but includes the following listed in this critical care notation. Medical Decision Making - Medical Records Medical records reviewed: Yes: I reviewed the patient's medical records. - Scooby Inquiry Pt receiving controlled substance: Yes Scooby was queried for this patient: Yes Reference #:: [id number] Risks and benefits of using a controlled substance: were discussed with pt by me Comment: 1 rx - gabapentin Vital Signs: 07/12/20 10:11 Temperature 98.2 F Temperature Source Oral Pulse Rate [Right Radial] 64 Respiratory Rate 17 Blood Pressure [Right Arm] 150/85 H Blood Pressure Mean [Right Arm] 106 02 Sat by Pulse Oximetry 98 - Lab Data Lab results reviewed: Yes: I reviewed the patient's lab results. Orders (Tests/Meds): ORDERS Category Date Time Status Femur XR right 2 views [XR femur RT 2V] Stat Exams 07/12/20 10:53 Taken XR lumbar spine 2-3V Stat Exams 07/12/20 10:53 Taken Medical Decision Narrative: No clinical suspicion of DVT. No signs of arterial compromise.
--- NOTE | 2020-07-12 10:53 | XR_ITS ---
PROCEDURE: XR LUMBAR SPINE 2-3V CLINICAL INDICATION: pain Low back pain COMPARISON: No exams were available for comparison FINDINGS: No fracture or dislocation. No lytic or blastic change. There is normal mineralization. There is straightening of the lumbar lordosis. There is mild multilevel degenerative disc disease from T12-L3 and L5-S1. There is mild loss of height anteriorly of L4 which is age indeterminate. Vascular calcifications are noted. Multiple surgical clips are present in the pelvic region. Minimal mid lumbar curvature convex right Other findings:None. IMPRESSION: Multilevel lumbar spondylosis with mild age indeterminate wedging of L4. MRI may provide further evaluation as to the age of the compression changes if clinically warranted. No retropulsion Dictated by: Gustavo Turner MD 07/12/2020 15:20 Gustavo Turner MD in [place] 07/12/2020 15:20
--- NOTE | 2020-07-12 10:53 | XR_ITS ---
PROCEDURE: XR FEMUR RT 2V CLINICAL INDICATION: pain COMPARISON: No exams were available for comparison FINDINGS: No fracture or dislocation. No lytic or blastic change. There is normal mineralization. There are mild osteoarthritic changes of the right and knee. Vascular calcifications are present in the mid aspect of the thigh medially. There are multiple surgical clips along the lower pelvic region Other findings:None. IMPRESSION: Mild osteoarthritis Dictated by: Gustavo Turner MD 07/12/2020 15:18 Gustavo Turner MD in [place] 07/12/2020 15:18
[2020-07-12 11:38] VITALS: BP 128/74; PULSE 78; RESP 16; TEMP 36.6; O2SAT 96
== END 2020-07-12 11:40 | disposition home or self-care (01) ==
PROVIDERS: Emergency Provider Emergency Medicine; PCP Family Medicine
DX: M79.604 Pain in right leg (principal); G57.81 Other specified mononeuropathies of right lower limb; I25.10 Atherosclerotic heart disease of native coronary artery without angina pectoris; K21.9 Gastro-esophageal reflux disease without esophagitis; I10 Essential (primary) hypertension; E78.5 Hyperlipidemia, unspecified; E11.9 Type 2 diabetes mellitus without complications; Z79.84 Long term (current) use of oral hypoglycemic drugs; Z79.899 Other long term (current) drug therapy
CPT/HCPCS: 72100; 73552; 99281

== ENCOUNTER 2022-12-26 15:03 | Emergency (ER) | payer MEDICARE, SELFPAY ==
[2022-12-26 15:04] VITALS: BP 135/68; PULSE 67; RESP 16; TEMP 36.6; O2SAT 95; BMI 25.1
[2022-12-26 16:00] VITALS: BP 137/70; PULSE 64; O2SAT 97
--- NOTE | 2022-12-26 16:00 | XR_ITS ---
FINAL REPORT CLINICAL HISTORY: fall, rt shoulder pain FINDINGS: Right shoulder Three views were obtained. There is a comminuted fracture of the distal clavicle with inferior displacement of the distal fracture fragments. There is mild AC joint arthrosis. There is also mild degenerative change of the glenohumeral joint. IMPRESSION: Comminuted fracture of the distal clavicle. Reviewed, Interpreted and Dictated by Jonh Ngo III, MD Transcribed by Yesy Bella Authenticated and . [facility]
[2022-12-26 16:31] VITALS: BP 141/71; PULSE 60; O2SAT 95
--- NOTE | 2022-12-26 16:46 | PC.NURSE ---
PC to radiology, images are locked, results still pending. Patient informed
[2022-12-26 17:00] VITALS: BP 128/74; PULSE 60; RESP 20; O2SAT 98
--- NOTE | 2022-12-26 17:15 | HMH.EDGENADL ---
Discharge Plan Disposition Patient Disposition: Home, Self-Care Condition: Fair Prescriptions Prescriptions: No Action clopidogrel 75 mg tablet 75 mg PO DAILY aspirin [Adult Aspirin Regimen] 81 mg tablet,delayed release (DR/EC) 81 mg PO DAILY losartan 25 mg tablet 50 mg PO DAILY pantoprazole [Protonix] 20 mg tablet,delayed release (DR/EC) 20 mg PO BID Qty: 60 5RF donepezil 5 MG tablet 10 mg PO HS glimepiride 1 MG tablet 2 mg PO DAILY metformin 1,000 MG tablet 1,000 mg PO BID rosuvastatin 40 MG tablet 40 mg PO HS ofheuvcf-xth-WO-lycopen-lutein 1 EACH tablet 1 each PO DAILY clopidogrel 75 MG tablet 75 mg PO DAILY Referrals Follow up/Referrals: Aura Escalante [Primary Care Provider] - See instructions Fran Carter DO [Staff Physician] - See instructions Activity Restrictions/Add. Instructions Additional Instructions/Restrictions: At this point it was felt you are safe to be discharged home. If new or worsening symptoms please do not hesitate to return to the emergency department. Please call and schedule an appointment with Dr. Carter with orthopedics for continued evaluation. Clinical Impressions Clinical Impression: Clavicle fracture Discharge ED Provider: Alexandru Odonnell General Adult HPI General Chief complaint: PAIN Stated complaint: [id number] right shouler pain Time Seen by Provider: 12/26/22 17:00 Mode of Arrival: Ambulatory Source of Information: Patient and Spouse Limitations: No Limitations Description of Symptoms (Recalled from ER Triage Doc. by RN): pt was chasing grandson around, fell and hit right shoulder. no pain at this time. History of Present Illness HPI narrative: Patient is a 77-year-old male with no pertinent past medical history presents emergency department for evaluation of a ground-level fall. Patient was reportedly being chased by his grandson when he fell onto an outstretched hand causing pain in his shoulder. Due to this he presents here for continued evaluation. Related Data Home Medications Medication Instructions Recorded Confirmed donepezil 5 mg tablet 10 mg PO HS BRAIN FUNCTION 09/10/19 06/27/20 glimepiride 1 mg tablet 2 mg PO DAILY Diabetes 09/10/19 06/27/20 metformin 1,000 mg tablet 1,000 mg PO BID Diabetes 09/10/19 06/27/20 jnknwpxo-yxu-spjgh acid 0.4 1 each PO DAILY Supplement 09/10/19 06/27/20 mg-lycopene 300 mcg-lutein 250 mcg tablet rosuvastatin 40 mg tablet 40 mg PO HS Cholesterol 09/10/19 06/27/20 clopidogrel 75 mg tablet 75 mg PO DAILY heart healthy 05/16/20 06/27/20 losartan 25 mg tablet 50 mg PO DAILY bp 08/03/20 08/03/20 aspirin 81 mg tablet,delayed 81 mg PO DAILY 09/02/20 09/02/20 release (Adult Aspirin Regimen) clopidogrel 75 mg tablet 75 mg PO DAILY 09/02/20 09/02/20 Previous Rx's Medication Instructions Recorded pantoprazole 20 mg tablet,delayed 20 mg PO BID #60 tabs 07/04/20 release (Protonix) Allergies Allergy/AdvReac Type Severity Reaction Status Date / Time MICHAEL Inhibitors AdvReac Intermediate cough Verified 09/02/20 14:41 [facility] Disclaimer: The information contained in this section may have been updated after the patient was seen, as this information can be updated by other users. Medical History (Updated 12/26/22 @ 17:25 by Alexandru Odonnell MD) Shortness of breath Social History Smoking Status: Former smoker alcohol intake: current substance use type: denies use current occupational status: retired Travel in the last 8 weeks: None household members: spouse housing: house caffeine: Yes ROS Obtained: Yes Systems reviewed as appropriate & no additional complaints except as documented Physical Exam General General appearance: alert and in no apparent distress Head Head exam: atraumatic and normocephalic Eye Eye exam: Present PERRL ENT ENT exam: Present mucous membranes moist Neck Neck exam: Present norm
--- NOTE | 2022-12-26 17:16 | PC.NURSE ---
Dr Odonnell speaking to Dr Carter
[2022-12-26 17:32] VITALS: BP 160/79; PULSE 64; RESP 20; O2SAT 97
[2022-12-26 17:39] VITALS: BP 145/89; PULSE 89; RESP 16; TEMP 36.6
== END 2022-12-26 17:53 | disposition home or self-care (01) ==
PROVIDERS: Emergency Provider Emergency Medicine; PCP Family Medicine
DX: S42.031A Displaced fracture of lateral end of right clavicle, initial encounter for closed fracture (principal); W18.30XA Fall on same level, unspecified, initial encounter; Z87.891 Personal history of nicotine dependence
CPT/HCPCS: 29105; 73030; 99283; 99284

== ENCOUNTER → 2023-01-31 09:04 | Outpatient (CLI) | payer MEDICARE, SELFPAY ==
--- NOTE | 2023-01-31 09:10 | XR_ITS ---
FINAL REPORT CLINICAL HISTORY: rt clavicle fx COMPARISON: 12/26/2022 FINDINGS: Right clavicle Two views were obtained. There is a comminuted fracture of the distal end of the right clavicle. There is inferior displacement of the distal fracture fragments and remainder of the shoulder. There are mild AC and glenohumeral joint degenerative changes. The bony alignment is stable. There is no significant callus formation. No soft tissue abnormality is identified. IMPRESSION: Comminuted fracture of the distal clavicle without significant callus formation. Reviewed, Interpreted and Dictated by Jonh Ngo III, MD Transcribed by Yesy Bella Authenticated and [facility]
== END ==
PROVIDERS: PCP Family Medicine; Visit Provider Orthopaedic Surgery
DX: S42.001A Fracture of unspecified part of right clavicle, initial encounter for closed fracture (principal)
CPT/HCPCS: 73000

== ENCOUNTER 2023-11-26 14:12 | Emergency (ER) | payer MEDICARE, SELFPAY ==
[2023-11-26 14:20] VITALS: BP 133/73; PULSE 67; RESP 18; TEMP 36.5; O2SAT 95; BMI 25.0
--- NOTE | 2023-11-26 14:52 | ED_ITS ---
Discharge Plan Disposition Patient Disposition: Home, Self-Care Condition: Good Prescriptions Pres[facility] .Route Qty: 1 0RF Rx Instructions: As directed No Action aspirin [Adult Aspirin Regimen] 81 mg tablet,delayed release (DR/EC) 81 mg PO DAILY losartan 25 mg tablet 50 mg PO DAILY omeprazole 40 mg capsule,delayed release(DR/EC) 40 mg PO DAILY amlodipine 10 mg tablet 10 mg PO DAILY Patient Comments: TAKE 1 TABLET BY MOUTH ONCE DAILY donepezil 5 MG tablet 10 mg PO HS glimepiride 1 MG tablet 2 mg PO DAILY metformin 1,000 MG tablet 1,000 mg PO BID rosuvastatin 40 MG tablet 40 mg PO HS yyvgojab-zvf-KB-lycopen-lutein 1 EACH tablet 1 each PO DAILY Referrals Follow up/Referrals: Fran Carter DO [Staff Physician] - See instructions (Call office tomorrow for appointment ) Aura Escalante [Primary Care Provider] - See instructions Activity Restrictions/Add. Instructions Additional Instructions/Restrictions: *Use walker to get around Call Orthopedic office tomorrow for appointment *Elevate when resting? *Ibuprofen every 6-8 hours as needed for pain an inflammation if you can take it if not or If need something more can take Tylenol in between doses of Ibuprofen to help Immediately follow up with your family doctor for new or worsening of symptoms, or no noticeable improvement over the next 3-5 days Clinical Impressions Clinical Impression: Lower extremity injury Instructions Patient Instructions: How to Choose and Use a Walker Discharge ED Provider: Beatriz [place] [facility] [place] General Stated complaint: possible knot on Lt leg Mode of Arrival: Ambulatory Source of Information: Patient Limitations: No Limitations Time Seen by Provider: 11/26/23 14:52 Description of Symptoms (Recalled from Triage Doc. by RN): Pt has knot on left calf . He was riding the tractor and felt pain and looked down and see place. HEENT Symptoms (Recalled from RN notes): No Resp Symptoms (Recalled from RN notes): No Skin Symptoms (Recalled from RN notes): Yes MS Symptoms (Recalled from RN notes): Yes Functional Status (Recalled from RN notes): n/a History of Present Illness Provider Complaint: Patient states that he was on the tractor and had got off and was walking around in the shop when he felt a pain in his left calf area and burning States that they looked at his calf and he had a large knot there with some bruising States he isnt having any pain or anything but the area on the leg is large and they was concerned so he came in Related Data Home Medications Medication Instructions Recorded Confirmed donepezil 5 mg tablet 10 mg PO HS BRAIN FUNCTION 09/10/19 11/26/23 glimepiride 1 mg tablet 2 mg PO DAILY Diabetes 09/10/19 11/26/23 metformin 1,000 mg tablet 1,000 mg PO BID Diabetes 09/10/19 11/26/23 wtwoqcsm-rvv-nocms acid 0.4 1 each PO DAILY Supplement 09/10/19 11/26/23 mg-lycopene 300 mcg-lutein 250 mcg tablet rosuvastatin 40 mg tablet 40 mg PO HS Cholesterol 09/10/19 11/26/23 losartan 25 mg tablet 50 mg PO DAILY bp 08/03/20 11/26/23 aspirin 81 mg tablet,delayed 81 mg PO DAILY 09/02/20 11/26/23 release (Adult Aspirin Regimen) amlodipine 10 mg tablet 10 mg PO DAILY 11/26/23 11/26/23 omeprazole 40 mg capsule,delayed 40 mg PO DAILY 11/26/23 11/26/23 release Previous Rx's Medication Instructions Recorded walker #1 ea 11/26/23 Allergies Allergy/AdvReac Type Severity Reaction Status Date / Time MICHAEL Inhibitors AdvReac Intermediate cough Verified 11/26/23 14:32 Worker's Comp Is this a Worker's Comp case?: No [facility] Disclaimer: The information contained in this section may have been updated after the patient was seen, as this information can be updated by other users. Medical History Shortness of breath Social History Smoking Status: Former smoker alcohol intake: current substance use type: denies use current occupational status: retired Travel in the last 8 weeks: None household members: spouse housing: house caffeine: Yes ROS Obtained: Yes All systems reviewed & no additional complaints except as documented and Yes Systems reviewed as appropriate & no additional complaints except as documented Cardiovascular Cardiovascular: Reports system reviewed and no additional complaints, except as documented and Reports as per HPI Respiratory Respiratory: Reports system reviewed and no additional complaints, except as documented and Reports as per HPI Gastrointestinal Gastrointestingal: Reports system reviewed and no additional complaints, except as documented and as per HPI Musculoskeletal Musculoskeletal: Reports system reviewed and no additional complaints, except as documented and Reports as per HPI Comments: swelling and knot on left calf area denies known injury reports was walking and felt a burning sensation Physical Exam General General appearance: alert and in no apparent distress Respiratory Respiratory exam: Present normal lung sounds bilaterally; Absent respiratory distress or wheezes Cardiovascular Cardiovascular exam: Present regular rate, normal rhythm and normal heart sounds Expanded Lower Extremity Exam Left: Leg image: 2 1. large hard raised area noted with what appears to be bruising noted in center Denies pain able to move and raise foot Neurological Exam Neurological exam: Present alert, oriented X3 and normal gait Medical Decision Making Scooby Inquiry Pt receiving controlled substance: No Scooby was queried for this patient: No Vital Signs: 11/26/23 14:20 Temperature 97.7 F Temperature Source Oral Pulse Rate [Right Radial] 67 Respiratory Rate 18 Blood Pressure [Right Arm] 133/73 Blood Pressure Mean [Right Arm] 93 Blood Pressure Source [Right Arm] Automatic Cuff Blood Pressure Position [Right Arm] Sitting 02 Sat by Pulse Oximetry 95 Oxygen Delivery Method Room Air CT Data ED CT Reviewed: Yes I have viewed the radiologist's interpretation US Data US Images: Lower Extremity ED US Reviewed: Yes I have viewed radiologist's interpretation Findings Narrative: IMPRESSION: No evidence of deep venous thrombosis left lower extremity. Complex fluid collection versus neoplasm in the medial left calf. This could be further evaluated with MRI. Medical Decision Narrative: Consulted with Dr Hermosillo and she viewed leg and due to location higher up on the lower leg will consult Orthopedics, Called and spoke with Dr Carter Advised place on crutches/walker and have him follow up in the office for further treatment and imaging Discussed with patient and due to age concerned with falling on crutches therefore will write for walker and have patient call office for appointment
--- NOTE | 2023-11-26 14:56 | CA_ITS ---
FINAL REPORT TECHNIQUE: Color Doppler, duplex Doppler and compression sonography of the left lower extremity deep venous systems was performed. CLINICAL HISTORY: KNOT MID MEDIAL CALF X 1 DAY,NKI FINDINGS: There is no evidence of deep venous thrombosis from the level of the groin to the calf. The veins are patent and compressible. There is a heterogeneous mass in the medial left calf measuring 5.7 x 1.7 cm, may represent complex fluid collection or neoplasm. IMPRESSION: No evidence of deep venous thrombosis left lower extremity. Complex fluid collection versus neoplasm in the medial left calf. This could be further evaluated with MRI. Reviewed, Interpreted and Dictated by Jonh Ngo III, MD Transcribed by Yesy Bella Authenticated and [facility]
[2023-11-26 16:03] VITALS: BP 133/73; PULSE 67; RESP 18; TEMP 36.5; O2SAT 95
--- NOTE | 2023-11-26 16:32 | EXP.POD.CONS ---
History of Present Illness *Admission Date: 11/26/23 *Reason for visit:: Left calf strain *History of present illness: Patient is a 78-year-old who presented to the [facility] today for evaluation of left calf pain and deformity. Patient was riding the tractor and stepped down when he was walking around he felt pain and swelling a large knot . He came to the hospital to be evaluated. Reports pain with ambulation. [facility] Disclaimer: The information contained in this section may have been updated after the patient was seen, as this information can be updated by other users. Medical History Shortness of breath Social History Smoking Status: Former smoker alcohol intake: current substance use type: denies use current occupational status: retired Travel in the last 8 weeks: None household members: spouse housing: house caffeine: Yes Review of Systems Review of Systems Review of systems:: pertinent systems reviewed and negative unless documented below Constitutional Constitutional: Reports system reviewed and no additional complaints, except as documented Eyes Eyes: Reports system reviewed and no additional complaints, except as documented ENT Ears, Nose, Mouth, and Throat: Reports system reviewed and no additional complaints, except as documented *Cardiovascular Cardiovascular: Reports system reviewed and no additional complaints, except as documented and Reports leg edema *Respiratory Respiratory: Reports system reviewed and no additional complaints, except as documented *Gastrointestinal Gastrointestinal: Reports system reviewed and no additional complaints, except as documented *Genitourinary Genitourinary: Reports system reviewed and no additional complaints, except as documented *Musculoskeletal Musculoskeletal: Reports system reviewed and no additional complaints, except as documented and Reports deformity Integumentary/Breasts Skin/Breast: Reports system reviewed and no additional complaints, except as documented *Neurologic Neurologic: Reports system reviewed and no additional complaints, except as documented Psychiatric Psychiatric: Reports system reviewed and no additional complaints, except as documented Endocrine Endocrine: Reports system reviewed and no additional complaints, except as documented Hematologic/Lymphatic Hematologic/Lymphatic: Reports system reviewed and no additional complaints, except as documented Allergic/Immunologic Allergic/Immunologic: Reports system reviewed and no additional complaints, except as documented Meds Home Medications and Allergies Home Medications Medication Instructions Recorded Confirmed Type donepezil 5 mg tablet 10 mg PO HS BRAIN FUNCTION 09/10/19 11/26/23 History glimepiride 1 mg tablet 2 mg PO DAILY Diabetes 09/10/19 11/26/23 History metformin 1,000 mg tablet 1,000 mg PO BID Diabetes 09/10/19 11/26/23 History [id number]-xsr-[id number] acid 0.4 1 each PO DAILY Supplement 09/10/19 11/26/23 History mg-lycopene 300 mcg-lutein 250 mcg tablet rosuvastatin 40 mg tablet 40 mg PO HS Cholesterol 09/10/19 11/26/23 History losartan 25 mg tablet 50 mg PO DAILY bp 08/03/20 11/26/23 History aspirin 81 mg tablet,delayed 81 mg PO DAILY 09/02/20 11/26/23 History release (Adult Aspirin Regimen) amlodipine 10 mg tablet 10 mg PO DAILY 11/26/23 11/26/23 History omeprazole 40 mg capsule,delayed 40 mg PO DAILY 11/26/23 11/26/23 History release kamilah #1 ea 11/26/23 Rx New Prescriptions to Start Prescriptions: Beatriz Keys Allergies Allergy/AdvReac Type Severity Reaction Status Date / Time MICHAEL Inhibitors AdvReac Intermediate cough Verified 11/26/23 14:32 Exam (Inpt) Vital signs and Labs for Last 24 Hours: Temp Pulse Resp BP Pulse Ox O2 Del Method 97.7 F 67 18 133/73 95 Room Air 11/26/23 16:03 11/26/23 16:03 11/26/23 16:03 11/26/23 16:03 11/26/23 14:20 11/26/23 16:03 I & O for Labs for Last 24 Hours: Intake & Output 11/24/23 11/25/23 11/26/23 11/27/23 11:59 11:59 11:59 11:59 Weight 185 lb Constitutional: Present no acute distress Head: Present normocephalic Neck: Present normal inspection Respiratory: Present normal respiratory effort Cardiac: Present posterior tibial pulses present and pedal pulses present GI: Present soft Extremities: Present normal inspection, full ROM, normal capillary refill, edema and joint swelling Skin: Present intact, warm and ecchymosis Comment:: Ecchymosis to the left medial calf/leg. Visible and palpable knot to the medial calf. Neuro: Present Motor Function Intact, Sensory Function Intact, oriented x 3 and moves all extremities Ankle: left: swelling, left: decreased ROM, left: pain with active ROM and left: pain with passive ROM tendons: achilles Comment:: Able to PF with left Aguero test but decreased strength compared to right. Palpable knot to medial calf at level of gastroc head. Concern for gastroc tear, muscle herniation. Feet/Toes: bilateral: normal inspection and bilateral: hammer toe Pulses: L dorsalis pedis pulse: normal, R dorsalis pedis pulse: normal, L posterior tibial pulse: normal and R posterior tibial pulse: normal CFT: normal: CFT Results Labs Labs: All other labs normal. Assessment and Plan *Assessment and plan (1) Pain in left lower leg: Status: Acute Category: Medical Code(s): M79.662 - Pain in left lower leg (2) Gastrocnemius muscle tear: Status: Acute Qualifiers: Encounter type: initial encounter Laterality: left Qualified Code(s): S86.112A - Strain of other muscle(s) and tendon(s) of posterior muscle group at lower leg level, left leg, initial encounter Category: Medical Code(s): S86.119A - Strain of other muscle(s) and tendon(s) of posterior muscle group at lower leg level, unspecified leg, initial encounter (3) Strain of left calf muscle: Status: Acute Category: Medical Code(s): S86.812A - Strain of other muscle(s) and tendon(s) at lower leg level, left leg, initial encounter Plan Left leg pain: -hurt calf: was on tractor and then walking around and felt pain and saw knot -pain and traumatic bruising to left medial calf -[facility] today: US (-) DVT -differential diagnosis: calf muscle strain, medial gastroc tear with herniation -Beatriz at [facility] consulted me vs Ortho. I did see patient and evaluate. I agree with diagnosis and clinical concern. -Will need outpt follow up and possibly MRI depending on clinical appearance at f/u. -Beatriz called Dr Carter, Ortho (he has seen patient in past). -Immobilize in fx boot (or splint), NWB with DME. -May have difficulty with crutches due to age, co-morbidities and weakness upper body strength. -She will give Rx for walker. -Follow up with Ortho outpatient.
== END 2023-11-26 16:03 | disposition home or self-care (01) ==
PROVIDERS: Emergency Provider Nurse Practitioner; PCP Family Medicine
DX: M79.662 Pain in left lower leg (principal); Z87.891 Personal history of nicotine dependence; S80.12XA Contusion of left lower leg, initial encounter; X58.XXXA Exposure to other specified factors, initial encounter
CPT/HCPCS: 93971; 99204; 99212; G0463

== ENCOUNTER 2025-08-15 13:53 | Emergency (ER) | payer MEDICARE, SELFPAY ==
--- OUTSIDE RECORDS SUMMARY | 2025-07-14 09:00 | XMS_ITS | Encounter Summary ---
Author Organization [facility] Address [address] [place] [address] Care Team Providers Care Journeyman Level Acoustic Analyst Name Role Phone Aura Escalante MD Primary Care Provider [phone] Reason for Visit * Reason Comments Follow-up Encounter Details Date Type Department Care Team (Late st Contact Info) Description 07/14/2025 10:00 AM EDT [facility] [place] [facility] [address] [place] [id number] Zuleika Nam, PSYCHOLOGICAL OPERATIONS [address] [facility] [address] [place] [address] Mild cognitive impairment (Primary Dx); Alzheimer's disease Social History Tobacco Use Types Packs/Day Years Used Date Smoking Tobacco: Never Passive Smoke Exposure: Never Smokeless Tobacco: Never Alcohol Use Standard Drinks/Week Comments Yes 0 (1 standard drink = 0.6 oz pure alcohol) Alcoholic Drinks/day: Occasional alcohol use PHQ-2 Answer Date Recorded Patient Health Questionnaire-2 Score 0 02/14/2024 Sex and Gender Information Value Date Recorded Sex Assigned at Not on file Legal Sex Male 7:32 PM EDT Gender Identity Not on file Sexual Orientation Not on file documented as of this encounter Last Filed Vital Signs Vital Sign Reading Time Taken Comments Blood Pressure 149/78 07/14/2025 9:48 AM EDT Pulse 63 07/14/2025 9:48 AM EDT Temperature - - Respiratory Rate 20 07/14/2025 9:48 AM EDT Oxygen Saturation 94% 07/14/2025 9:48 AM EDT Inhaled Oxygen Concentration - - Weight 83 kg (183 lb) 07/14/2025 9:48 AM EDT Height 182.9 cm (6') 07/14/2025 9:48 AM EDT Body Mass Index 24.82 07/14/2025 9:48 AM EDT documented in this encounter Miscellaneous Notes * Progress Notes - Zuleika Nam APRN - 07/14/2025 10:00 AM EDT Subjective Blaise Hollis presents to the [facility] as a returning patienttoday with/for Follow-up. Blaise Hollis is a 79-year-old male patient we follow for mild cognitive impairment due to Alzheimer's disease. His last visit was 01/05/2025. He is accompanied by his for today's visit. She is adding to his health history and medication list. Mr. Hollis was receiving Leqembi infusions however after his 4th infusion and 1st safety visit MRIwas positive for ARIA E and ARIA H. Infusions were health and MRI was repeated on 07/07/2024 and showed no new evidence of ARIA E and ARIA H. Patient did report some confusion with the the development of his Aria E and Aria H. Patient and decided not to continue with infusions at that time. Patient states that his memory has not changed but went on to say that his memory issues are no more than anyone else. He did not remember having a diagnosis of Alzheimer's disease and stated that he had forgotten. He is managing his own medications. does the household finances but has always done those. does report some changes in his ability to remember conversations and repeating himself. She also reported that he was having some issues with getting lost while driving, but corrected herself and stated only in unfamiliar areas. He is sleeping well and denies any changes in appetite. They deny any depression or anxiety. He denies any agitation or irritability or other behavioral issues. He is maxed out on donepezil and memantine at this time. Past Medical History[1] Family History[2] Surgical History[3] Social History Tobacco Use Smoking status: Never Passive exposure: Never Smokeless tobacco: Never Substance Use Topics Alcohol use: Yes Comment: Alcoholic Drinks/day: Occasional alcohol use Medications Ordered Prior to Encounter[4] Allergies[5] All medications have been reviewed today. Review of Systems Negative otherwise noted in HPI. Objective Vitals: 07/14/25 0948 BP: (!) 149/78 Pulse: 63 Resp: 20 SpO2: 94% Physical Exam Auscultation of the heart revealed normal rhythm and no murmurs were appreciated. CN 2-12 were intact including extra ocular motility, all within normal limits. They were able to arise from a chair without difficulty. Gait was normal. Normal strength and bulk. Finger taping, hand fisting, pronation/supination were all normal. Coordination as a measure of cerebellar function including the finger to nose task was intact. There was no tremor noted on exam. STMS = Orientation 5/8 Attention 6/7 Learning 4/4 Calculation 3/4 Abstraction 1/3 Construction 3/4 Information 2/4 Delayed Recall 0/4 Discussion Summary: Blaise Hollis is a 79-year-old male patient we follow for mild cognitive impairment due to Alzheimer's disease. He was receiving Leqembi infusions however after developing ARIA E and ARIA H, patient and decided not to continue. He has had a significant decline since his last visit. I discussed medication and driving safety with patient and . We will follow up in 6 months to reassess and make further recommendations. Assessment/Plan: Diagnosis Plan 1. Mild cognitive impairment 2. Alzheimer's disease Counseling Documentation: The patient and was counseled regarding patient and family education. Education provided was verbal counseling. Additional time was spent in care coordination including additional diagnostic research and medicalrecord review. The total time of encounter was 40 minutes and greater than 50% of the visit was spent in counseling/coordination of care. . [1] Past Medical History: Diagnosis Date Bilateral pneumonia 02/14/24 Cancer (CMS/HCC) Chronic recurrent sinusitis 10/20/15 Chronic sinusitis 10/20/15 From [facility];Provider: Spencer Zelaya;Status: Active Diabetes mellitus HL (hearing loss) Hypertension Memory loss Shingles [2] History reviewed. No pertinent family history. [3] Past Surgical History: Procedure Laterality Date PROSTATE SURGERY N/A Prostate surgery from [facility] [4] Current Outpatient Medications on File Prior to Visit Medication Sig Dispense Refill Acetaminophen 500 MG capsule 2 capsules (1,000 mg) every 6 (six) hours. amLODIPine (Norvasc) 10 MG tablet Take 1 tablet by mouth daily. aspirin 81 MG EC tablet 1 (one) time each day. donepezil (Aricept) 10 MG tablet Take 1 tablet (10 mg) by mouth 1 (one) time each day in the evening. glimepiride (Amaryl) 2 MG tablet glimepiride 2 mg tablet TAKE 1 TABLET BY MOUTH ONCE DAILY ketoconazole (NIZOral) 2 % cream losartan (Cozaar) 100 MG tablet losartan 100 mg tablet TAKE 1 TABLET BY MOUTH ONCE DAILY Memantine HCl ER 28 MG capsule sustained-release 24 hr memantine 28 mg capsule sprinkle,extended release 24hr metFORMIN (Glucophage) 500 MG tablet metformin 500 mg tablet mupirocin (Bactroban) 2 % ointment omeprazole (PriLOSEC) [address] capsule Take 1 capsule (40 mg) by mouth 1 (one) time each day. rOPINIRole (Requip) 0.5 MG tablet Take 1 tablet (0.5 mg) by mouth every night. tolterodine LA (Detrol LA) 4 MG 24 hr capsule Take 1 capsule (4 mg) by mouth 1 (one) time each day. triamcinolone (Kenalog) 0.1 % cream Accu-Chek Guide test strip USE 1 TEST STRIP ONCE DAILY DIRECTED (Patient not taking: Reported on07/14/2025) Aspirin Buf,[id number], 81 MG tablet (Patient not taking: Reported on 07/14/2025) rosuvastatin (Crestor) 40 MG tablet Take 1 tablet (40 mg) by mouth 1 (one) time each day in the evening. (Patient not taking: Reported on 07/14/2025) No current facility-administered medications on file prior to visit. [5] Allergies Allergen Reactions Jassi Inhibitors Cough Imipramine Nausea Metoclopramide Other - please document in the comment field Sitagliptin Other - please document in the comment field back pain documented in this encounter Plan of Treatment Upcoming Encounters Date Type Department Care Team (Late st Contact Info) Description 01/12/2026 10:40 AM EDT [facility] [place] [facility] [address] [place] [id number] Zuleika Nam, [facility] [address] [place] [address] documented as of this encounter Visit Diagnoses Diagnosis Mild cognitive impairment- Primary Mild cognitive impairment, so stated Alzheimer's disease documented in this encounter Additional Health Concerns Assessment Noted Time A fall risk assessment has been complete d for the patient 01/05/2025 1:23 PM EDT A Body Mass Index follow-up plan has been documented for the patient 07/14/2025 1:46 PM EDT documented as of this encounter Care Teams Journeyman Level Acoustic Analyst Relationship Specialty Start Date End Date Aura Escalante MD [address] [place] [address] [address] [place] [address] PCP - General 01/08/23 documented as of this encounter
[2025-08-15] VITALS (12 sets, daily range): BP systolic 116–160; BP diastolic 73–93; PULSE 55–87; RESP 14–20; TEMP 36.8; O2SAT 95–98; BMI 25.0
--- NOTE | 2025-08-15 14:25 | PC.NURSE ---
glu [id number]
--- NOTE | 2025-08-15 14:33 | CT_ITS ---
PROCEDURE INFORMATION: Exam: CT Pelvis Without Contrast, Skeleton Exam date and time: 08/15/2025 2:58 PM Age: 79 years old Clinical indication: Injury or trauma; Fall; Blunt trauma (contusions or hematomas); Right; Hip TECHNIQUE: Imaging protocol: Computed tomography of the pelvis without contrast. Exam focused on the skeleton. Radiation optimization: All CT scans at this facility use at least one of these dose optimization techniques: automated exposure control; mA and/or kV adjustment per patient size (includes targeted exams where dose is matched to clinical indication); or iterative reconstruction. COMPARISON: No relevant prior studies available. FINDINGS: Limitations: Limited assessment without contrast. Intestine: Sigmoid diverticulosis. No evidence for acute diverticulitis. Visualized portion of the bowel appears unremarkable. Intraperitoneal space: No free fluid within the pelvis. Vasculature: Heavy atherosclerotic plaque along the visualized portion of the lower infrarenal abdominal aorta. Scattered atherosclerotic plaque along the iliac arteries. Reproductive: Prior prostatectomy. Urinary bladder: Bladder is partially decompressed. Bladder appears unremarkable as visualized. Bones/joints: Comminuted, impacted and mildly displaced right femoral neck fracture. Fracture appears to partially extend into the peripheral margin of the head of the femur on the right. No dislocation of the right hip joint. Greater trochanter and lesser trochanter are intact. Right acetabulum is intact. Superior and inferior pubic rami are intact. Symphysis pubis is normally aligned. Proximal left femur is intact. Left hip joint is normally aligned. Mild arthritic changes are present at the right and left hip joint. Sacrum is intact. Partial fusion along the anterior aspect of the right SI joint. Mild sclerosis and degenerative change along the anterior margin of the left SI joint. Visualized lower lumbar vertebral bodies are intact. Multilevel disc space narrowing and degenerative endplate change is present within the lower lumbar spine. Soft tissues: There is mild stranding and thickening within the distal aspect of the iliopsoas muscle overlying the areas of fracture. Subcutaneous edema surrounds the right hip joint. Small joint effusion is present on the right. Surgical clips are present at the resection bed of the prostate and along the right and left pelvic sidewall. Lymph nodes: No suspicious lymphadenopathy within the lower abdomen or pelvis. IMPRESSION: 1. Comminuted, impacted and mildly displaced right subcapital femoral neck fracture. Orthopedic consultation is recommended. 2. Mild edema and inflammatory changes present surrounding the right hip and anterior to the proximal right femur at the level of the fracture. Small right hip joint effusion is present . 3. Other incidental and nonemergent findings are discussed above.
--- NOTE | 2025-08-15 14:33 | XR_ITS ---
PROCEDURE INFORMATION: Exam: XR Right Hip Exam date and time: 08/15/2025 3:01 PM Age: 79 years old Clinical indication: Injury or trauma; Fall; Blunt trauma (contusions or hematomas); Right; Hip TECHNIQUE: Imaging protocol: Radiologic exam of the right hip. Views: 2 or 3 views hip with pelvis when performed. COMPARISON: CT BONY PELVIS 08/15/2025 2:58 PM FINDINGS: Bones/joints: Mildly comminuted, impacted and slightly displaced right subcapital femoral neck fracture. No dislocation of the right hip joint. Proximal left femur is intact. Alignment of the left hip joint is normal. Mild arthritic changes are present at the right and left hip joint. Remainder of the bony pelvis appears intact. Partial fusion along the superior aspect of the right SI joint. Multilevel degenerative changes within the lower lumbar spine. Soft tissues: Mild soft tissue fullness anterior to the right hip joint at the level of the fracture. Organs: Surgical clips are present throughout the pelvis compatible with prior prostatectomy and mckenzie dissection. IMPRESSION: Subcapital right femoral neck fracture. Orthopedic consultation is recommended.
--- NOTE | 2025-08-15 14:35 | ED_ITS ---
Discharge Plan Disposition Patient Disposition: Xfer SNF Prescriptions Prescriptions: No Action aspirin [Adult Aspirin Regimen] 81 mg tablet,delayed release (DR/EC) 81 mg PO DAILY losartan 25 mg tablet 50 mg PO DAILY omeprazole 40 mg capsule,delayed release(DR/EC) 40 mg PO DAILY amlodipine 10 mg tablet 10 mg PO DAILY Patient Comments: TAKE 1 TABLET BY MOUTH ONCE DAILY (DME) kamilah Misc See Rx Instructions .Route Qty: 1 0RF Rx Instructions: As directed donepezil 5 MG tablet 10 mg PO HS glimepiride 1 MG tablet 2 mg PO DAILY metformin 1,000 MG tablet 1,000 mg PO BID rosuvastatin 40 MG tablet 40 mg PO HS rgtijxro-pdw-QC-lycopen-lutein 1 EACH tablet 1 each PO DAILY Referrals Follow up/Referrals: Aura Escalante [Primary Care Provider, Medical] - See instructions Clinical Impressions Clinical Impression: Femoral neck fracture Stand Alone Forms Stand Alone Forms: Transfer Record - ED Instructions Patient Instructions: DI for Hip Fracture Print Language Print Language: Samoan Discharge ED Provider: Adalgisa Soto General Adult HPI <Elina Garcia (ED), COMBINATION WELDER - Last Filed: 08/15/25 16:52> General Chief complaint: Fall Stated complaint: AO-Fall right leg pain Time Seen by Provider: 08/15/25 14:29 Mode of Arrival: Ambulatory Source of Information: Patient Description of Symptoms (Recalled from ER Triage Doc. by RN): patient presents for a fall that occured at home. he was helping his spouse at home on the ground, resting on his knees when he tried to stand back up and ultimately lost his balance, falling backwards off the porch, which is approximately 2 strairs in height, landing backwards and turned right. his right hip is hurting. he also has a noticeable skin tear to the right arm as well. History of Present Illness HPI narrative: This is a 79-year-old male who presents today after he was doing something on his knees on the porch and fell off the porch onto his right hip. He tried to stand back up and lost his balance falling backwards off the porch. Patient is only on aspirin. He does have a skin tear on his right arm as well. He tells me he did not hit his head or lose consciousness. Related Data Home Medications ?Medication ?Instructions ?Recorded ?Confirmed donepezil 5 mg tablet 10 mg PO HS BRAIN FUNCTION 1 11/11/18 11/26/23 glimepiride 1 mg tablet 2 mg PO DAILY Diabetes 09/1011/26/23 metformin 1,000 mg tablet 1,000 mg PO BID Diabetes 11/26/23 tzgbftod-nru-kbqwd acid 0.4 1 each PO DAILY Supplement 09/10/19 11/26/23 mg-lycopene 300 mcg-lutein 250 mcg tablet rosuvastatin 40 mg tablet 40 mg PO HS Cholesterol 08/1711/26/23 losartan 25 mg tablet 50 mg PO DAILY bp 08/03/20 0 11/26/23 aspirin 81 mg tablet,delayed 81 mg PO DAILY 09/02/20 0 11/26/23 release (Adult Aspirin Regimen) amlodipine 10 mg tablet 10 mg PO DAILY 11/26/2311/14 omeprazole 40 mg capsule,delayed 40 mg PO DAILY 11/26/23 release Previous Rx's ?Medication ?Instructions ?Recorded walker #1 ea 11/26/23 Allergies Allergy/AdvReac Type Severity Reaction Status Date / Time MICHAEL Inhibitors AdvReac Intermediate cough Verified 11/26/23 14:32 [facility] <Elina Garcia (ED), COMBINATION WELDER - Last Filed: 08/15/25 16:52> [facility] Disclaimer: The information contained in this section may have been updated after the patient was seen, as this information can be updated by other users. Medical History Shortness of breath Social History Smoking Status: Never smoker alcohol intake: current alcohol intake frequency: a few times a week substance use type: denies use current occupational status: retired Travel in the last 8 weeks?: None household members: spouse housing: house caffeine: Yes Have you lived/traveled outside US in past 30 days?: No Contact w/someone who lives/traveled outside US past 30 days?: No Exposure to someone with infectious disease in past 14 days?: No Do you have a fever (greater than 100.4 F or 38 C)?: No Have you tested positive for COVID-19?: No Exposed to someone with COVID-19 in past 14 days?: No Do you have a sore throat?: No Do you have a cough?: No Do you have any weakness?: No Do you have any diarrhea?: No Are you experiencing any unusual bleeding?: No Do you have any muscle aches/pain?: No Do you have any abdominal pain?: No Are you experiencing loss of taste or smell?: No Other Medical History Have you received the Flu Vaccine for this season: Yes Have you received the Pneumonia Vaccine: No <Elina Garcia (ED), COMBINATION WELDER - Last Filed: 08/15/25 16:52> ROS Obtained: Yes Systems reviewed as appropriate & no additional complaints except as documented Constitutional Constitutional: Reports as per HPI Physical Exam <Elina Garcia (ED), COMBINATION WELDER - Last Filed: 08/15/25 16:52> General General appearance: alert and in no apparent distress Head Head exam: atraumatic and normocephalic Eye Eye exam: Present PERRL and EOMI ENT ENT exam: Present normal oropharynx and mucous membranes moist Neck Neck exam: Present full ROM and trachea midline Respiratory Respiratory exam: Present normal lung sounds bilaterally Cardiovascular Cardiovascular exam: Present regular rate, normal rhythm, normal heart sounds, +S1 and +S2 Abdominal Exam Abdominal exam: Present soft and normal bowel sounds Extremities Exam Extremities exam: Present full ROM and normal capillary refill Neurological Exam Neurological exam: Present alert and oriented X3 Skin Skin exam: Present warm, dry and other (Skin tear on right arm) Medical Decision Making <Elina Garcia (ED), COMBINATION WELDER - Last Filed: 08/15/25 16:52> Medical Records Screening: Per USPSTF and CDC recommendations, given the prevalence of disease in our region, it is our hospital?s policy to screen for HIV and viral Hepatitis for all patients aged 18 and over and those with ongoing risk factors. Scooby Inquiry Pt receiving controlled substance: No Scooby was queried for this patient: No Vital Signs: 08/15/25 14:19 08/15/25 14:32 08/15/25 15:19 Temperature 98.2 F Temperature Source Oral Pulse Rate 55 L 62 Pulse Rate [Right Radial] 63 Respiratory Rate 20 Blood Pressure 133/75 133/79 Blood Pressure [Right Arm] 116/73 Blood Pressure Mean [Right Arm] 87 Blood Pressure Source [Right Arm] Automatic Cuff Blood Pressure Position [Right Arm] Sitting 02 Sat by Pulse Oximetry 97 97 97 Oxygen Delivery Method Room Air Room Air 08/15/25 15:30 08/15/25 16:00 08/15/25 16:30 Temperature Temperature Source Pulse Rate 58 L 72 81 Pulse Rate [Right Radial] Respiratory Rate Blood Pressure 132/77 140/78 132/83 Blood Pressure [Right Arm] Blood Pressure Mean [Right Arm] Blood Pressure Source [Right Arm] Blood Pressure Position [Right Arm] 02 Sat by Pulse Oximetry 95 97 97 Oxygen Delivery Method Room Air Room Air Room Air 08/15/25 16:50 08/15/25 17:00 08/15/25 17:29 Temperature Temperature Source Pulse Rate 75 87 Pulse Rate [Right Radial] Respiratory Rate Blood Pressure 120/93 H 160/91 H Blood Pressure [Right Arm] Blood Pressure Mean [Right Arm] Blood Pressure Source [Right Arm] Blood Pressure Position [Right Arm] 02 Sat by Pulse Oximetry 97 98 97 Oxygen Delivery Method Room Air Room Air Room Air 08/15/25 18:01 Temperature Temperature Source Pulse Rate 87 Pulse Rate [Right Radial] Respiratory Rate Blood Pressure 133/87 Blood Pressure [Right Arm] Blood Pressure Mean [Right Arm] Blood Pressure Source [Right Arm] Blood Pressure Position [Right Arm] 02 Sat by Pulse Oximetry 97 Oxygen Delivery Method Room Air Lab Data Lab Results 08/15/25 14:25: POC Glucose 257 H 08/15/25 14:40: WBC 6.5, RBC 4.67, Hgb 14.7, Hct 43.9, MCV 94.0, MCH 31.5 H, MCHC 33.5, RDW 13.1, Plt Count 209, MPV 10.0, Neut % (Auto) 79.7, Lymph % (Auto) 12.1, [place] % (Auto) 6.6, Eos % (Auto) 0.8, Baso % (Auto) 0.2, Neut # (Auto) 5.2, Lymph # (Auto) 0.8, [place] # (Auto) 0.4, Eos # (Auto) 0.1, Baso # (Auto) 0.0, PT 11.3, INR 1.02, Sodium 139, Potassium 3.9, Chloride 101, Carbon Dioxide 24, A nion Gap 17.9 H, BUN 14, Creatinine 1.00, Estimated Creat Clear 71, Estimated GFR 72, Est GFR ( Amer) 87, Glucose 280 H, Calcium 9.8, Magnesium 1.6, Total Bilirubin 1.3, AST 39, ALT 32, Alkaline Phosphatase 65, Total Protein 8.5 H, Albumin 4.9, Globulin 3.6 H, Albumin/Globulin Ratio 1.4, Lipase 171 08/15/25 14:40 08/15/25 14:40 Orders (Tests/Meds): ED MEDICATIONS Discontinued Medications Generic Name Dose Route Start Last Admin Trade Name Nery PRN Reason Stop Dose Admin Hydromorphone HCl 1 mg 08/15/25 16:12 08/15/25 16:21 Hydromorphone 2mg/Ml Syringe IV 08/15/25 16:13 1 mg ONCE ONE Administration Morphine Sulfate 4 mg 08/15/25 14:34 08/15/25 14:49 Morphine 4mg/Ml Syringe IV 08/15/25 14:35 4 mg ONCE ONE Administration Ondansetron HCl 4 mg 08/15/25 14:34 08/15/25 14:49 Ondansetron 4mg/2ml Vial IV 08/15/25 14:35 4 mg ONCE ONE Administration ORDERS Category Date Time Status CT bony pelvis Stat Cat Scan 08/15/25 14:33 Completed XR hip RT 2-3V w/pelvis Stat Exams 08/15/25 14:33 Completed CBC [Complete Blood Count Auto Diff] Stat Lab 08/15/25 14:40 Completed Comprehensive Metabolic Panel Stat Lab 08/15/25 14:40 Completed Lipase Stat Lab 08/15/25 14:40 Completed Magnesium Stat Lab 08/15/25 14:40 Completed POC Glucose,Bedside Routine Lab 08/15/25 14:25 Completed PT INR [Prothrombin Time INR] Stat Lab 08/15/25 14:40 Completed Medical Decision Narrative: patient is a 79-year-old male presenting to the emergency department for evaluation of right hip pain. Patient is hemodynamically stable and nontoxic- appearing upon arrival, afebrile. Differential diagnosis includes right hip fracture versus sprain or strain. Workup will be conducted with hematologic labs, specific imaging. Initial inventions include analgesics. Initial workup reviewed by wi hematologic labs are remarkable for White blood cell count of 6.5, H&H normal, INR was 1.02, electrolytes were normal glucose was high at 280.The pelvis CT shows comminuted, impacted and mildly displaced right subcapital femoral neck fracture. Also seen mild edema inflammatory changes present surrounding the right hip and anterior to the proximal right femur as a level of the fracture. I talked to [facility] initially and they do not have any beds at this moment. They have people boarding in the ED. They asked me to call [facility] and see if they can take the patient. I talked to Dr. Ibrahim at who accepted graciously to [place] [facility]. Patient will be transferred BLS to . <Alex Hernandez MD - Last Filed: 08/15/25 18:17> Vital Signs: 08/15/25 14:19 08/15/25 14:32 08/15/25 15:19 Temperature 98.2 F Temperature Source Oral Pulse Rate 55 L 62 Pulse Rate [Right Radial] 63 Respiratory Rate 20 Blood Pressure 133/75 133/79 Blood Pressure [Right Arm] 116/73 Blood Pressure Mean [Right Arm] 87 Blood Pressure Source [Right Arm] Automatic Cuff Blood Pressure Position [Right Arm] Sitting 02 Sat by Pulse Oximetry 97 97 97 Oxygen Delivery Method Room Air Room Air 08/15/25 15:30 08/15/25 16:00 08/15/25 16:30 Temperature Temperature Source Pulse Rate 58 L 72 81 Pulse Rate [Right Radial] Respiratory Rate Blood Pressure 132/77 140/78 132/83 Blood Pressure [Right Arm] Blood Pressure Mean [Right Arm] Blood Pressure Source [Right Arm] Blood Pressure Position [Right Arm] 02 Sat by Pulse Oximetry 95 97 97 Oxygen Delivery Method Room Air Room Air Room Air 08/15/25 16:50 08/15/25 17:00 08/15/25 17:29 Temperature Temperature Source Pulse Rate 75 87 Pulse Rate [Right Radial] Respiratory Rate Blood Pressure 120/93 H 160/91 H Blood Pressure [Right Arm] Blood Pressure Mean [Right Arm] Blood Pressure Source [Right Arm] Blood Pressure Position [Right Arm] 02 Sat by Pulse Oximetry 97 98 97 Oxygen Delivery Method Room Air Room Air Room Air 08/15/25 18:01 Temperature Temperature Source Pulse Rate 87 Pulse Rate [Right Radial] Respiratory Rate Blood Pressure 133/87 Blood Pressure [Right Arm] Blood Pressure Mean [Right Arm] Blood Pressure Source [Right Arm] Blood Pressure Position [Right Arm] 02 Sat by Pulse Oximetry 97 Oxygen Delivery Method Room Air Lab Data Lab Results 08/15/25 14:25: POC Glucose 257 H 08/15/25 14:40: WBC 6.5, RBC 4.67, Hgb 14.7, Hct 43.9, MCV 94.0, MCH 31.5 H, MCHC 33.5, RDW 13.1, Plt Count 209, MPV 10.0, Neut % (Auto) 79.7, Lymph % (Auto) 12.1, [place] % (Auto) 6.6, Eos % (Auto) 0.8, Baso % (Auto) 0.2, Neut # (Auto) 5.2, Lymph # (Auto) 0.8, [place] # (Auto) 0.4, Eos # (Auto) 0.1, Baso # (Auto) 0.0, PT 11.3, INR 1.02, Sodium 139, Potassium 3.9, Chloride 101, Carbon Dioxide 24, A nion Gap 17.9 H, BUN 14, Creatinine 1.00, Estimated Creat Clear 71, Estimated GFR 72, Est GFR ( Amer) 87, Glucose 280 H, Calcium 9.8, Magnesium 1.6, Total Bilirubin 1.3, AST 39, ALT 32, Alkaline Phosphatase 65, Total Protein 8.5 H, Albumin 4.9, Globulin 3.6 H, Albumin/Globulin Ratio 1.4, Lipase 171 Orders (Tests/Meds): ED MEDICATIONS Discontinued Medications Generic Name Dose Route Start Last Admin Trade Name Freq PRN Reason Stop Dose Admin Hydromorphone HCl 1 mg 08/15/25 16:12 08/15/25 16:21 Hydromorphone 2mg/Ml Syringe IV 08/15/25 16:13 1 mg ONCE ONE Administration Morphine Sulfate 4 mg 08/15/25 14:34 08/15/25 14:49 Morphine 4mg/Ml Syringe IV 08/15/25 14:35 4 mg ONCE ONE Administration Ondansetron HCl 4 mg 08/15/25 14:34 08/15/25 14:49 Ondansetron 4mg/2ml Vial IV 08/15/25 14:35 4 mg ONCE ONE Administration ORDERS Category Date Time Status CT bony pelvis Stat Cat Scan 08/15/25 14:33 Completed XR hip RT 2-3V w/pelvis Stat Exams 08/15/25 14:33 Completed CBC [Complete Blood Count Auto Diff] Stat Lab 08/15/25 14:40 Completed Comprehensive Metabolic Panel Stat Lab 08/15/25 14:40 Completed Lipase Stat Lab 08/15/25 14:40 Completed Magnesium Stat Lab 08/15/25 14:40 Completed POC Glucose,Bedside Routine Lab 08/15/25 14:25 Completed PT INR [Prothrombin Time INR] Stat Lab 08/15/25 14:40 Completed Medical Decision Narrative: patient is a 79-year-old male presenting to the emergency department for evaluation of right hip pain. Patient is hemodynamically stable and nontoxic- appearing upon arrival, afebrile. Differential diagnosis includes right hip fracture versus sprain or strain. Workup will be conducted with hematologic labs, specific imaging. Initial inventions include analgesics. Initial workup reviewed by me hematologic labs are remarkable for White blood cell count of 6.5, H&H normal, INR was 1.02, electrolytes were normal glucose was high at 280.The pelvis CT shows comminuted, impacted and mildly displaced right subcapital femoral neck fracture. Also seen mild edema inflammatory changes present surrounding the right hip and anterior to the proximal right femur as a level of the fracture. I talked to [facility] initially and they do not have any beds at this moment. They have people boarding in the ED. They asked me to call and see if they can take the patient. I talked to Dr. Ibrahim at who accepted graciously to [place] [facility]. Patient will be transferred BLS to . I was consulted by the JUSTIN, and we discusssed the complexity of the problems being adressed. I approved the treatment and management plan for this patient's care in the Emergency Department, thus performing a substantive portion of the medical decision making. Alex Hernandez MD Critical Care <Elina Garcia (ED), COMBINATION WELDER - Last Filed: 08/15/25 16:52> Critical Care Time Critical Care Time: No
--- OUTSIDE RECORDS SUMMARY | 2025-08-15 14:35 | XMS_ITS | Encounter Summary ---
[facility] Address [address] [place] [address] Care Team Providers Care Tavern Car Attendant Name Role Phone Aura Escalante MD Primary Care Provider + Encounter Details Date Type Department Care Team (Late st Contact Info) Description 11/27/2016 External CPT II [facility] - [facility] Social History Tobacco Use Types Packs/Day Years Used Date Smoking Tobacco: Never Assessed Sex and Gender Information Value Date Recorded Sex Assigned at Not on file Legal Sex Male 10:02 AM EDT Gender Identity Not on file Sexual Orientation Not on file documented as of this encounter Plan of Treatment Not on file documented as of this encounter Visit Diagnoses Not on filedocumented in this encounter Additional Health Concerns Infection Onset Date Last Indicated Resolved Time COVID (rule out) 05/09/2020 05/10/2020 05/16/2020 9:09 PM EDT documented as of this encounter Care Teams Tavern Car Attendant Relationship Specialty Start Date End Date Aura Escalante MD [address] [place] [id number] PCP - General 09/29/15 documented as of this encounter
--- OUTSIDE RECORDS SUMMARY | 2025-08-15 14:35 | XMS_ITS | Encounter Summary ---
Author Organization [facility] Address [address] [place] [address] Care Team Providers Care Salon/Spa Manager Name Role Phone Aura Escalante MD Primary Care Provider [phone] Encounter Details Date Type Department Care Team (Late Contact Info) Description 11/19/2023 Orders Only External Location [address] [place] [phone] Provider, External Social History Tobacco Use Types Packs/Day Years Used Date Smoking Tobacco: Never Smokeless Tobacco: Never Alcohol Use Standard Drinks/Week Comments Yes 0 (1 standard drink = 0.6 oz pure alcohol) Alcoholic Drinks/day: Occasional alcohol use Sex and Gender Information Value Date Recorded Sex Assigned at Not on file Legal Sex Male 7:32 PM EDT Gender Identity Not on file Sexual Orientation Not on file documented as of this encounter Plan of Treatment Upcoming Encounters Date Type Department Care Team (Late Contact Info) Description 01/12/2026 10:40 AM EDT [facility] [address] [place] [id number] Zuleika Nam, N[facility] [address] [facility] [address] [place] [phone] documented as of this encounter Procedures Procedure Name Priority Date/Time Associated Diagnosis Comments MR NEURO OUTSIDE IMAGES 11/19/2023 10:18 AM EST documented in this encounter Results * MR NEURO OUTSIDE IMAGES (11/19/2023 10:18 AM EST) Anatomical Region Laterality Modality Magnetic Resonan ce 11/19/2023 10:1 8 AM EST us External Provider IMG MRI PROCEDURES Final Resul t documented in this encounter Visit Diagnoses Not on filedocumented in this encounter Additional Health Concerns Assessment Noted Time A fall risk assessment has been complete d for the patient 01/08/2023 3:39 PM EDT documented as of this encounter Care Teams Salon/Spa Manager Relationship Specialty Start Date End Date Aura Escalante MD [address] [place] [address] [address] [place] [address] PCP - General 01/08/23 documented as of this encounter
--- OUTSIDE RECORDS SUMMARY | 2025-08-15 14:35 | XMS_ITS | Data Portability ---
Author Organization [facility] VIVIEN [facility] [place] [facility] Address [address] [facility] [address] [place] [address] Care Team Providers Care Watcher Lookout Tower Name Role Phone KATHERINE BURGOS Primary Care Provider Assessment No assessment recorded. Plan of Treatment Reminders Order Date Submit Date Provider Last Modified By Organization Details Last Modified Time Details Appointments None recorded. Lab urinalysis panel, auto 2020 [address], [facility], [place], [address], 15:12:31 Referral None recorded. Procedures None recorded. Surgeries None recorded. Imaging None recorded. Medication Orders None recorded. Patient TargetsNo targets recorded. Patient Instructions Encounter Date Encounter Id Patient Instructions Last Modified By Organization Details Last Modified Time 11/07/2020 [id number] Kegel exercises daily. Go ahead and try the imipramine as prescribed Not available 11/09/2020 15:10:55 12/19/2021 [id number] I dispensed a Bagley Clamp for prn use and instructed in its usage Not available 12/21/2021 09:32:25 I discussed AUS with him and would refer him to prosthetic surgeon if he would like to pursue. Not available 12/21/2021 09:32:55 Reason for Referral None Reported. Results Created Date Observation Date Name Description Value Unit Range Abnormal Flag Note LastModifiedBy Organization Detail LastModifiedTime 11/07/19 21 11/07/2020 urina lysis panel , auto Unknown Analyte Clean Catch Not Available [facility] [address] [facility], [place], [address], 11/07/2020 10:25:36 11/07/19 21 11/07/2020 urina lysis panel , auto Unknown Analyte Yellow Not Available [facility] [address] [facility], [place], [address], 11/07/2020 10:25:36 11/07/19 21 11/07/2020 urina lysis panel , auto Unknown Analyte Clear Not Available [facility] [address] [facility], [place], [address], 11/07/2020 10:25:36 11/07/19 21 11/07/2020 urina lysis panel , auto Unknown Analyte 1.000 Not Available [facility] [address] [facility], [place], [address], 11/07/2020 10:25:36 11/07/19 21 11/07/2020 urina lysis panel , auto Unknown Analyte 7.0 Not Available [facility] [address] [facility], [place], [address], 11/07/2020 10:25:36 11/07/19 21 11/07/2020 urina lysis panel , auto Unknown Analyte Negati ve Not Available [facility] [address] [facility], [place], [address], 11/07/2020 10:25:36 11/07/19 21 11/07/2020 urina lysis panel , auto Unknown Analyte Negati ve Not Available [facility] [address] [facility], [place], [address], 11/07/2020 10:25:36 11/07/19 21 11/07/2020 urina lysis panel , auto Unknown Analyte Negati ve Not Available [facility] [address] [facility], [place], [address], 11/07/2020 10:25:36 11/07/19 21 11/07/2020 urina lysis panel , auto Unknown Analyte Normal Not Available [facility] [address] [place], [address], 11/07/2020 10:25:36 11/07/19 21 11/07/2020 urina lysis panel , auto Unknown Analyte Negati ve Not Available [facility] [address] [facility], [place], [address], 11/07/2020 10:25:36 11/07/19 21 11/07/2020 urina lysis panel , auto Unknown Analyte Normal Not Available [facility] [address] [place], [address], 11/07/2020 10:25:36 11/07/19 21 11/07/2020 urina lysis panel , auto Unknown Analyte Negati ve Not Available [facility] [address] [facility], [place], [address], 11/07/2020 10:25:36 11/07/19 21 11/07/2020 urina lysis panel , auto Unknown Analyte Negati ve Not Available [facility] [address] [place], [address], 11/07/2020 10:25:36 Result Notes None recorded. 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 2015 From Automated Load;Provi josé miguel: Spencer Zelaya;[facility]: Active Not Available [facility] 6 08:20:11 Cough 11722254 Active 2015 From Automated Load;Provi josé miguel: Spencer Zelaya;[facility]: Active Not Available [facility] 6 08:20:11 Clinical finding Active 2015 From Automated Load;Provi josé miguel: Spencer Zelaya;[facility]: Active Not Available [facility] 6 08:20:11 Sensorine ural hearing loss 55437866 Active 2015 Provider: Spencer Zelaya;[facility]: Active Not Available [facility] 6 08:20:11 Sensorine ural hearing loss of bilateral ears 455922811 Active 2015 Provider: Spencer Zelaya;[facility]: Active Not Available [facility] 6 08:20:11 Deviated nasal septum 480457788 Active 2015 From Automated Load;Provi josé miguel: Spencer Zelaya;[facility]: Active Not Available [facility] 6 08:20:11 Cirrhosis of liver 82701222 Active 2015 From Automated Load;Provi josé miguel: Shahram Bradford;Statu s: Active Not Available [facility] 7 06:14:50 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 Procedures Surgical History Date Name Laterality Status Provider Name and Address Organization Details Recorded Time placement of stent in coronary artery completed Erin Mendoza [facility] 11/07/2020 10:15:50 radical retropubic prostatectomy completed RAMON BRYANT MD [address] [place] [address], [address], [facility] 11/09/2020 15:08:22 Other completed RAMON BRYANT MD [address] [place], [address], [facility] 11/09/2020 15:09:00 Imaging Results None recorded. Procedure Notes None recorded. Medical Equipment None Reported. Allergies Allergen ID Allergen Name Allergen Category Reaction Reaction Severity Criticality Documentation Date Start Date Code Code System Note Provider Name and Address Organization Details Recorded Time 225638 imipramin e Not available nausea Not available Not available 11/28/2020 5691 [address] Josee drew, [facility] 09:52:19 Medications Name Sig Start Date Stop Date Status Note LastModified by Organization Details LastModified Time losartan 50 mg tablet TAKE 1 TABLET BY MOUTH ONCE DAILY 12/19 completed Not Available Not Available Not Available metformin 500 mg tablet TAKE 2 TABLETS BY MOUTH TWICE DAILY active Not Available Not Available No t Available donepezil 5 mg tablet TAKE 1 TABLET BY MOUTH ONCE DAILY AT BEDTIME 12/19 completed Not Available Not Available Not Available aspirin 325 mg tablet Daily 11/07 completed Duration : 30 days;Robe quency: daily;Me dication Descript ion: aspirin; Dosage:1 ; Route:or al; refills: 0; Quantity :30 tablet Not Available Not Available Not Available tolterodi ne ER 4 mg capsule,e xtended release 24 hr TAKE 1 CAPSULE BY MOUTH ONCE DAILY FOR 30 DAYS 12/19 completed Not Available Not Available Not Available hydrocodo ne 5 mg-acetam inophen 325 mg tablet TAKE 1 TABLET BY MOUTH AT BEDTIME NEEDED FOR PAIN 11/07 completed Not Available Not Available Not Available donepezil 10 mg tablet TAKE 1 TABLET BY MOUTH ONCE DAILY active Not Available Not Available No t Available prednison e 20 mg tablet TAKE 1 TABLET BY MOUTH TWICE DAILY 11/07 completed Not Available Not Available Not Available Prilosec 20 mg capsule,d elayed release Every night at bedtime 11/07 completed Frequenc y: qhs;Medi cation Descript ion: omeprazo le; Dosage:1 ; Route:or al; refills: 3; Quantity :90 delayed release capsule Not Available Not Available Not Available prednison e 5 mg tablet TAKE 3 TABLETS BY MOUTH FOR 14 DAYS THEN 2 TABLETS DAILY FOR 14 DAYS THEN 1 TABLET DAILY FOR 14 DAYS 11/07 completed Not Available Not Available Not Available clopidogr el 75 mg tablet TAKE 1 TABLET BY MOUTH ONCE DAILY active Not Available Not Available No t Available amlodipin e 5 mg tablet 12/19 completed Not Available Not Available Not Available sulfameth oxazole 800 mg-trimet hoprim 160 mg tablet TAKE 1 TABLET BY MOUTH ONCE DAILY 11/07 completed Not Available Not Available Not Available omeprazol e 40 mg capsule,d elayed release TAKE 1 CAPSULE BY MOUTH ONCE DAILY active Not Available Not Available No t Available glimepiri de 2 mg tablet TAKE 1 TABLET BY MOUTH ONCE DAILY active Not Available Not Available No t Available pantopraz ole 20 mg tablet,de layed release TAKE 1 TABLET BY MOUTH TWICE DAILY DIRECTED 12/19 completed Not Available Not Available Not Available imiquimod 5 % topical cream packet APPLY A THIN LAYER OF CREAM TOPICALL Y TO THE LOWER LIP TWICE A WEEK FOR 16 WEEKS active Not Available Not Available No t Available amlodipin e 10 mg tablet TAKE 1 TABLET BY MOUTH ONCE DAILY active Not Available Not Available No t Available ropinirol e 0.5 mg tablet TAKE 1 TABLET BY MOUTH ONCE DAILY AT BEDTIME active Not Available Not Available No t Available losartan 25 mg tablet TAKE 1 TABLET BY MOUTH ONCE DAILY 11/07 completed Not Available Not Available Not Available nitroglyc shanell 0.4 mg sublingua l tablet DISSOLVE ONE TABLET UNDER THE TONGUE EVERY 5 MINUTES NEEDED FOR CHEST PAIN. DO NOT EXCEED A TOTAL OF 3 DOSES IN 15 MINUTES active Not Available Not Available No t Available Claritin- D 12 Hour 5 mg-120 mg tablet,ex tended release As needed 11/07 completed Frequenc y: prn;Medi cation Descript ion: loratadi ne-pseud oephedri ne; Route:or al; refills: 0 Not Available Not Available Not Available aspirin 81 mg tablet Daily 11/07 completed Duration : 30 days;Robe quency: daily;Me dication Descript ion: aspirin; Dosage:1 ; Route:or al; refills: 0; Quantity :30 tablet Not Available Not Available Not Available mupirocin 2 % topical ointment APPLY A SMALL AMOUNT OF OINTMENT TOPICALL Y TO AFFECTED AREA THREE TIMES DAILY active Not Available Not Available No t Available gabapenti n 100 mg capsule TAKE 1 TO 2 CAPSULES BY MOUTH IN THE EVENING FOR NEUROPAT HY PAIN active Not Available Not Available No t Available losartan 100 mg tablet TAKE 1 TABLET BY MOUTH ONCE DAILY active Not Available Not Available No t Available imipramin e 25 mg tablet TAKE 1 TABLET BY MOUTH TWICE DAILY 11/07 completed Not Available Not Available Not Available amoxicill in 875 mg-potass ium clavulana te 125 mg tablet TAKE 1 TABLET BY MOUTH EVERY 12 HOURS WITH MEALS FOR 10 DAYS 12/19 completed Not Available Not Available Not Available rosuvasta tin 40 mg tablet TAKE 1 TABLET BY MOUTH IN THE EVENING active Not Available Not Available No t Available amoxicill in 11/07 completed Medicati on Descript ion: amoxicil kt; Route:or al; refills: 0 Not Available Not Available Not Available coenzyme Q10 11/07 completed Medicati on Descript ion: ubiquino ne; refills: 0 Not Available Not Available Not Available Metamucil active Medicati on Descript ion: psyllium ; Route:or al; refills: 0 Not Available Not Available Not Available Miralax Daily active Instruct ions: 17gm in 8oz fluids QTY QS;Frequ ency: daily;Me dication Descript ion: polyethy hung glycol 3350; Dosage:a s directed ; Route:or al; refills: 0; Quantity :1 powder for reconsti tution Not Available Not Available Not Available Centrum Silver 0.4 mg-300 mcg-250 mcg tablet active Duration : 10 days;Med ication Descript ion: multivit hernandez with minerals ; Route:or al; refills: 0; Quantity :30 tablet Not Available Not Available Not Available memantine 14 mg capsule sprinkle, extended release 24hr TAKE 2 TABLETS BY MOUTH ONCE DAILY 12/19 completed Not Available Not Available Not Available memantine 7 mg capsule sprinkle, extended release 24hr 12/19 completed Not Available Not Available Not Available memantine 28 mg capsule sprinkle, extended release 24hr TAKE 1 CAPSULE BY MOUTH ONCE DAILY active Not Available Not Available No t Available Accu-Chek Guide test strips USE 1 STRIP ONCE DAILY DIRECTED active Not Available Not Available No t Available Accu-Chek Guide Glucose Meter USE DIRECTED ONCE DAILY active Not Available Not Available No t Available Accu-Chek Fastclix Lancet Drum USE 1 LANCET TO CHECK GLUCOSE ONCE DAILY OR DIRECTED active Not Available Not Available No t Available Vitals Date Recorded Body height Body mass index (BMI) Body weight Provider Name and Address Organization Details Last Updated DateTime 11/07/2020 182.88 cm 23.7 kg/m2 10790.66 g Erin Mendoza [facility] 11/07/2020 09:57:49 Date Recorded Body height Body mass index (BMI) Body weight Provider Name and Address Organization Details Last Updated DateTime 12/19/2021 182.88 cm 23.7 kg/m2 44283.66 g Josee Cervantesn [facility] 12/19/2021 13:27:17 Social History Question Answer Notes LastModified by [employer] Details LastModified Time Tobacco Smoking Status Former Smoker quit in the 60's [facility] 11/07/2020 10:14:36 Marital Status Information not available 11/07/2020 Sex: Unknown Functional Status Question Answer Note LastModified by [employer] Details LastModified Time What is your level of alcohol consumption? 0 bourbon,4 days/week Information not available 11/07/2020 What is your occupation? retired Information not available 11/07/2020 Mental Status None recorded. Family History Relationship Description Onset Age of this Age Resolved Age Notes LastModified by Organization Details LastModified Time Brother Diabetes mellitus hstrang Not available 2020 10:13:53 Medical History Condition Response Diabetes Y High Cholesterol Y Cancer Prostate Y Acid Reflux (GERD) Y Heart Disease Y Hypertension Y Pneumonia Y Past Encounters Encounter ID Performer Location Encounter Start Date Encounter Closed Date Diagnosis/Indication Diagnosis SNOMED-CT Code Diagnosis ICD10 Code Diagnosis IMO Codes Diagnosis Note [id number] [facility] [place] [address] 12/18/2016 08:18:59 12/18/2016 08:18:59 [id number] RAMON BRYANT MD UROLOGY [address] [place] [address] 11/07/2020 09:16:56 11/08/2020 16:24:26 Male urinary stress incontinence 781273871 N39.3 History of malignant neoplasm of prostate 712474113 Z85.46 [id number] [facility] [address] [place] [address] 12/19/2021 12:26:14 12/19/2021 16:01:26 Male urinary stress incontinence 401510996 N39.3 fairly severe History of malignant neoplasm of prostate 089916156 Z85.46 LUZMARIA now 25+yrs out Health Concerns Section Related Observation LastModified by Organization Detai ls LastModified Time None Recorded Concern Status LastModified by Organization Details LastModified Time None Recorded Advance Directives Directive None Recorded Payers Insurance Date Sequence Insurance Name Policy Number Policy Carpio Covered Member ID Carpio Member ID Guarantor Name 12/27/2021 2 [employer] (MEDICARE SUPPLEMENT) Blaise Costa Telma [id number] Blaise Costa Telma 12/16/2021 1 MEDICARE[place]ICARE[place] Blaise Costa Telma [id number] Blaise Costa Telma Notes Date Note Type Note Provider Name and Address Organization Details Recorded Time 11/07/2020 text/html Blaise is a 75 yo male, new patient who presents for evaluation of urinary incontinence. His current symptoms began approximately 6 months ago. The leakage occurs without warning during the day when he is up and active. He has no leakage with sudden urge. He complains of nocturia x3-5 but has no incontinence at night. He saw Dr. Curry in [place] for this problem ~ one month ago. Imipramine was prescribed but he decided against taking it after reading about side effects.He denies dysuria and grosss hematuria and he has had no recent UTI. He has a remote h/o prostate cancer- s/p RRP in the mid 90s.He cannot recall recent PSA value. RAMON BRYANT MD [facility] [place], [address], [facility] 11/09/2020 15:12:36 12/19/2021 text/html Blaise is a 76 yo male returns for a yearly f/u visit previously seen due to incontinence and remote history of prostate cancer. His incontinence is fairly severe, requiring pads all day long. He denies recent weight loss or bone pain. He continues to have nocturia x 1-2 and occasional urgency with urge incontinence. He denies new complaints today. RAMON BRYANT MD [facility] [place], [address], [facility] 12/21/2021 09:33:06
--- OUTSIDE RECORDS SUMMARY | 2025-08-15 14:35 | XMS_ITS | Encounter Summary ---
Author Organization [facility] Address [address] [place] [address] Care Team Providers Care Visual C Developer Name Role Phone Aura Escalante MD Primary Care Provider [phone] Encounter Details Date Type Department Care Team (Latest Contact Info) Description 07/14/2025 Travel Social History Tobacco Use Types Packs/Day Years [...] Description 01/12/2026 10:40 AM EDT [facility] [address] [place] [address] Zuleika Nam, SERVICES COORDINATOR [address] [place] [address] documented as of this encounter Visit Diagnoses Not on filedocumented in this encounter Additional Health Concerns Assessment Noted Time A fall risk assessment has been complete d for the patient 01/05/2025 1:23 PM EDT A Body Mass Index follow-up plan has been documented for the patient 07/14/2025 1:46 PM EDT documented as of this encounter Care Teams Visual C Developer Relationship Specialty Start Date End Date Aura Escalante MD [address] [place] [address] [address] [place] [address] PCP - General 01/08/23 documented as of this encounter
--- OUTSIDE RECORDS SUMMARY | 2025-08-15 14:35 | XMS_ITS | Clinical Summary ---
Author Organization [facility] Address [address] [place] [address] Care Team Providers Care Health Sciences Department Chair Name Role Phone Aura Escalante MD Primary Care Provider + Allergies No known active allergies Medications Multiple Vitamins-Minera ls (CENTRUM SILVER 50+MEN PO) Take by mouth Daily. Active metFORMIN (GLUCOPHAGE) 500 MG tablet Take 500 mg by mouth 2 (Two) Times a Day With Meals. 2 tabs bid Active rosuvastatin (CRESTOR) 10 MG tablet Take 10 mg by mouth Daily. Active ASPIRIN 81 PO aspirin 81 mg tablet,delayed release Take 1 tablet every day by oral route. Active clopidogrel (PLAVIX) 75 MG tablet Take 75 mg by mouth Daily. 0 Active donepezil (ARICEPT) 5 MG tablet donepezil 5 mg tablet TAKE 1 TABLET BY MOUTH ONCE DAILY AT BEDTIME Active losartan (COZAAR) 25 MG tablet Take 25 mg by mouth Daily. 0 Active sulfamethoxazol e-trimethoprim (BACTRIM DS,SEPTRA DS) 800-160 MG per tabletIndicatio ns:Interstitial lung disease Take 1 tablet by mouth Daily. 90 tablet 3 0 Active glimepiride (AMARYL) 2 MG tablet Take 2 mg by mouth Daily. 0 Active pantoprazole (PROTONIX) 40 MG EC tablet pantoprazole 40 mg tablet,delayed release 1 po bid Active Active Problems Problem Noted Date Diagnosed Date Interstitial lung disease 02/16/2020 Positive YOLANDA (antinuclear antibody) 02/16/2020 Hypersensitivity pneumonitis 02/16/2020 Neuropathy 10/28/2019 Benign hypertension 10/28/2019 Chronic recurrent sinusitis 10/28/2019 Gastroesophageal reflux disease 10/28/2019 Herpes zoster 10/28/2019 Type 2 diabetes mellitus without complication Overview (06/16/2025): UPDATING PER 2024 REGULATORY 2024 LOAD Nonalcoholic steatohepatitis 07/16/2018 Arteriosclerosis of coronary artery 10/16/2017 Overview (10/28/2019): Description: A. History of cardiac catheterization, 12/14/2010 with drug-eluting stent placement to the RCA. Precordial pain 10/16/2017 Pure hypercholesterolemia 10/16/2017 Resolved Problems Problem Noted Date Diagnosed Date Resolved Date Abnormal CT of the chest wit h bilateral diffuse groundglass opacities 10/28/2019 02/16/2020 Immunizations Immunization Administration Dates Next Due Fluzone High-Dose 65+YRS 05/28/2019,05/18,06/17/2017,06/05,06/17/2015,07/20/2014 Influenza TIV (IM) 06/25/2012 Pneumococcal Conjugate 13-Va lent (PCV13) 08/05/2015 Pneumococcal Polysaccharide (PPSV23) 07/20/2014 Td, Not Adsorbed 04/07/2019,12/17/2005 Tdap 06/05/2016 Zostavax 03/01/2014 Family History Medical History Relation Name Comments Heart disease Father Louis Hollis Heart failure Father Louis Hollis Relation Name Status Comments Father Louis Hollis Social History Tobacco Use Types Packs/Day Years Used Date Smoking Tobacco: Former Cigarettes 0.1 1 1 966 - 1967 Smokeless Tobacco: Never Alcohol Use Standard Drinks/Week Comments Yes 1 (1 standard drink = 0.6 oz pur e alcohol) 1 bourbon drink daily Abuse Screen Answer Date Recorded Unsafe at Home or Work/School Not on file Feels Threatened by Someone? Not on file 05/2023 Does Anyone Keep You from Co ntacting Others or Doint Things Outside the Home? Not on file 06/24/2023 Physical Sign of Abuse Present Not on file 1 Housing Stability Answer Date Recorded Current Living Arrangements Not on file 05/2023 Potentially Unsafe Housing Conditions Not on katerina e 06/24/2023 Family and Community Support Answer Jason e Recorded Help with Day-to-Day Activities Not on file 06/24/2023 Lonely or Isolated Not on file 06/24/2023 Employment Answer Date Recorded Do you want help finding or keeping work or a wayne b? Not on file 06/24/2023 Disabilities Answer Date Recorded Concentrating, Remembering, or Making Decisions Difficulty Not on file 06/24/2023 Doing Errands Independently Difficulty Not on fi le 06/24/2023 Education Answer Date Recorded Help with school or training? Not on file Preferred Language Not on file 06/24/2023 Sex and Gender Information Value Date Recorded Sex Assigned at Not on file Legal Sex Male 10:02 AM EDT Gender Identity Not on file Sexual Orientation Not on file Last Filed Vital Signs Vital Sign Reading Time Taken Comments Blood Pressure 152/80 05/13/2020 2:54 PM EDT Pulse 57 05/13/2020 2:54 PM EDT Temperature 36.5 C (97.7 F) 05/13/2020 2:54 PM EDT Respiratory Rate 16 02/16/2020 1:52 PM EDT Oxygen Saturation 95% 05/13/2020 2:5 4 PM EDT room air seated Inhaled Oxygen Concentration - - Weight 82.4 kg (181 lb 9.6 oz) 05/13/2020 2:54 PM EDT Height 179.1 cm (5' 10.5 ) 05/13/2020 2 :54 PM EDT Body Mass Index 25.69 05/13/2020 2:54 PM EDT Plan of Treatment Health Maintenance Due Date Last Done Comments COLOGUARD 1990 COLON CANCER SCREENING 5 YEA R SIGMOIDOSCOPY 1990 CT COLONOGRAPHY 1990 FECAL OCCULT BLOOD TEST 1990 FIT Testing (1 year) 1990 ZOSTER VACCINE (2 of 3) 04/26/2014 03/01/2014 ANNUAL PHYSICAL 10/16/2017 HEPATITIS C SCREENING 10/16/2017 RSV Vaccine - Adults (1 - 1- dose 75+ series) 2020 LIPID PANEL 02/10/2022 02/10/2021, 02/2020, 12/15/2019, Additional history exists INFLUENZA VACCINE 04/16/2025 05/27/2020, , 05/28/2019, Additional history exists COVID-19 Vaccine (1 - 2023-2 5 season) 2025 TDAP/TD VACCINES (3 - Td or Tdap) 04/07/2029 04/07/2019, 06/05/2016, 12/17/2005 COLONOSCOPY 05/16/2030 05/16/2020, 05/28/2016 COLORECTAL CANCER SCREENING 05/16/2030 Pneumococcal Vaccine 50+ Completed 08/05/2015, 12/2013 HEMOGLOBIN A1C Discontinued 02/10/2021, 02/2020, 12/15/2019, Additional history exists Insurance MEDICARE A & B [employer] Care Teams Health Sciences Department Chair Relationship Specialty Start Date End Date Aura Escalante MD [address] [place] [address] [facility] - General 09/29/15
--- OUTSIDE RECORDS SUMMARY | 2025-08-15 14:35 | XMS_ITS | Clinical Summary ---
Author Organization [facility] Address [address] [place] [address] Care Team Providers Care Answering Service Telephone Operator Name Role Phone Aura Escalante MD Primary Care Provider [phone] Allergies Active Allergy Reactions Criticality Noted Date Comments Jassi Inhibitors Cough Medium 05/16/2020 Imipramine Nausea 01/08/2023 Metoclopramide Other - please docum ent in the comment field Low 01/08/2023 Sitagliptin Other - please docum ent in the comment field Low 04/10/2019 back pain Medications aspirin 81 MG EC tablet 1 (one) time each day. Active donepezil (Aricept) 10 MG tablet Take 1 tablet (10 mg) by mouth 1 (one) time each day in the evening. 3 Active glimepiride (Amaryl) 2 MG tablet glimepiride 2 mg tablet TAKE 1 TABLET BY MOUTH ONCE DAILY Active losartan (Cozaar) 100 MG tablet losartan 100 mg tablet TAKE 1 TABLET BY MOUTH ONCE DAILY Active Memantine HCl ER 28 MG capsule sustained-relea se 24 hr memantine 28 mg capsule sprinkle,extende d release 24hr Active metFORMIN (Glucophage) 500 MG tablet metformin 500 mg tablet Active Acetaminophen 500 MG capsule 2 capsules (1,000 mg) every 6 (six) hours. Active Aspirin Buf,CaCarb-MgCa rb-MgO, 81 MG tablet 9 Active Accu-Chek Guide test strip USE 1 TEST STRIP ONCE DAILY DIRECTED 4 Active rOPINIRole (Requip) 0.5 MG tablet Take 1 tablet (0.5 mg) by mouth every night. 4 Active tolterodine LA (Detrol LA) 4 MG 24 hr capsule Take 1 capsule (4 mg) by mouth 1 (one) time each day. 4 Active rosuvastatin (Crestor) 40 MG tablet Take 1 tablet (40 mg) by mouth 1 (one) time each day in the evening. 4 Active mupirocin (Bactroban) 2 % ointment Active ketoconazole (NIZOral) 2 % cream Active omeprazole (PriLOSEC) [address] capsule Take 1 capsule (40 mg) by mouth 1 (one) time each day. 4 Active triamcinolone (Kenalog) 0.1 % cream Active amLODIPine (Norvasc) 10 MG tablet Take 1 tablet by mouth daily. 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 Diabetic neuropathy 02/14/2024 Disorder of prostate 02/14/2024 Disorder of urinary tract 02/14/2024 Dyspnea on exertion 02/14/2024 Paroxysmal dyspnea 02/14/2024 Fever 02/14/2024 General unsteadiness 02/14/2024 High-pressure injection injury of finger of left hand 02/14/2024 Shortness of breath 02/14/2024 Allergic rhinitis 02/14/2024 Impacted cerumen 02/14/2024 Injury of extensor tendon of left hand Ketoacidosis due to type 2 diabetes mellitus Left eye pain 02/14/2024 Muscle pain 02/14/2024 Pain of left lower extremity 02/14/2024 Pain of right lower extremity 02/14/2024 Pulmonary fibrosis 02/14/2024 Spasm of back muscles 02/14/2024 Symptom of wheezing 02/14/2024 TIA (transient ischemic attack) 02/14/2024 Essential hypertension 02/14/2024 Esophagitis 02/14/2024 GERD (gastroesophageal reflux disease) Hyperlipidemia 12/18/2023 Diabetes mellitus 01/23/2023 Hypertension 01/23/2023 Closed displaced fracture of lateral end of righ t clavicle 01/08/2023 Hypersensitivity pneumonitis 02/16/2020 Interstitial lung disease 02/16/2020 Positive YOLANDA (antinuclear antibody) 02/16/2020 Disorder associated with type 2 diabetes mellitu s 10/31/2019 Gallstone 10/31/2019 History of coronary artery stent placement 10/31 Benign hypertension 10/28/2019 Gastroesophageal reflux disease 10/28/2019 Neuropathy 10/28/2019 Type 2 diabetes mellitus without complication Herpes zoster 10/28/2019 Nonalcoholic steatohepatitis 07/16/2018 Arteriosclerosis of coronary artery 10/16/2017 Overview (02/14/2024): Description: A. History of cardiac catheterization, 12/14/2010 with drug-eluting stent placement to the RCA. Pure hypercholesterolemia 10/16/2017 Cirrhosis of liver 07/02/2016 Overview (02/14/2024): From Automated Load;Provider: Shahram Bradford;Status: Active Esophageal varices without bleeding 07/02/2016 Overview (02/14/2024): From Automated Load;Provider: Shahram Bradford;Status: Active Imaging of gastrointestinal tract abnormal 07/02 Overview (02/14/2024): From Automated Load;Provider: Shahram Bradford;Status: Active Deviated nasal septum 10/27/2015 Overview (02/14/2024): From Automated Load;Provider: Spencer Zelaya;Status: Active Sensorineural hearing loss, bilateral 10/20/2015 Chronic cough 10/20/2015 Overview (02/14/2024): From Automated Load;Provider: Spencer Zelaya;Status: Active Vasomotor rhinitis 10/20/2015 Overview (02/14/2024): From Automated Load;Provider: Spencer Zelaya;Status: Active Sensorineural hearing loss (SNHL) of both ears 0 10/20/2015 Overview (02/14/2024): Provider: Spencer Zelaya;Status: Active Provider: Spencer Zelaya;Status: Active Resolved Problems Problem Noted Date Diagnosed Date Resolved Date Bilateral pneumonia 02/14/2024 06/06/20 25 Fatigue 02/14/2024 06/06/2025 Malaise and fatigue 02/14/2024 06/06/20 25 Overweight with body mass in dex (BMI) 25.0-29.9 12/18/2023 06/06/2025 Precordial pain 10/16/2017 06/06/2025 Chronic recurrent sinusitis 10/20/2015 06/06/2025 Chronic sinusitis 10/20/2015 06/06/2025 Overview (02/14/2024): From Automated Load;Provider: Spencer Zelaya;Status: Active Encounters Date Type Department Care Team Description 07/14/2025 10:00 AM EDT Office Visit [facility] [place] [facility] [address] [place] [phone] Zuleika Nam APRN Mild cognitive impairment (Primary Dx); Alzheimer's disease 07/14/2025 Travel 07/13/2025 Travel from Last 3 Months Immunizations Immunization Administration Dates Next Due Influenza, high-dose, quadrivalent 09/05,09/03/2022,06/02/2021,05/27/20 20,05/28/2019,05/28/2019,06/05/2018,06/05,06/17/2017,06/17/2017,06/05/2016,,07/20/2014 Influenza, seasonal, injectable 06/25/2012 Pneumococcal 20-aiyana Conj Vaccine 03/11/2023 Pneumococcal Conjugate PCV 13 08/05/2015 Pneumococcal Polysaccharide PPV23 07/20/2014 Td (adult) 04/07/2019,12/17/2005 Tdap 06/05/2016 Zoster, live 03/01/2014 Social History Tobacco Use Types Packs/Day Years Used Date Smoking Tobacco: Never Passive Smoke Exposure: Never Smokeless Tobacco: Never Tobacco Cessation:Counseling Given: Not Answered Alcohol Use Standard Drinks/Week Comments Yes 0 [...] Pulse 63 07/14/2025 9:48 AM EDT Temperature 36.6 C (97.8 F) 05/05/2024 10:34 AM EDT Respiratory Rate 20 07/14/2025 9:48 AM EDT Oxygen Saturation 94% 07/14/2025 9:48 AM EDT Inhaled Oxygen Concentration - - Weight 83 kg (183 lb) 07/14/2025 9:48 AM EDT Height 182.9 cm (6') 07/14/2025 9:48 AM EDT Body Mass Index 24.82 07/14/2025 9:48 AM EDT Plan of Treatment Upcoming Encounters Date Type Department Care Team (Late st Contact Info) Description 01/12/2026 10:40 AM EDT Office Visit [facility] [place] [facility] [address] [place] [phone] Zuleika Nam, NARA [address] [place] [phone] Health Maintenance Due Date Last Done Comments [facility]-Diabetes: Hemoglobin A1C 1945 [facility]-Hepatitis C Screening 1945 [facility]-Medicare Annual Wellness (AWV) 1945 [facility]-Infant/Child/Adol SDOH Screenings 1945 Diabetes: Dental Exam 1955 [facility]- SDOH Screenings 1963 [facility]-Adult SDOH Screenings 1963 [facility]-Hepatitis A Vaccines (1 of 2 - Risk 2-dose series) 1964 [facility]-Zoster Vaccines (1 of 2) 04/26/2014 03/01/2014 [facility]-RSV Vaccine: 60+ Years or (1 - 1-dose 75+ series) 2020 [facility]-Depression Screening 02/13/2025 02/14/2024 [id number] Vaccine ( season) 2025 09/07/2024, 09/05/2023, 06/20/2022, Additional history exists [facility]-DTaP,Tdap,and Td Vaccines (3 - Td or Tdap) 04/07/2029 04/07/2019, 06/05/2016, 12/17/2005 [facility]-Pneumococcal Vaccine: 50+ Years Completed 03/11/2023, 08/05/2015, 07/20/2014 [facility]-Influenza Vaccine Completed 07/12/2025 , 06/05/2024, 09/05/2023, Additional history exists HPV Vaccines Aged Out No longer eligi ble based on patient's age to complete this topic [facility]-HIB Vaccines Aged Out No longer e ligible based on patient's age to complete this topic [facility]-IPV Vaccines Aged Out No longer e ligible based on patient's age to complete this topic [facility]-Rotavirus Vaccines Aged Out No lo nger eligible based on patient's age to complete this topic Insurance [facility] MEDICARE Care Teams Answering Service Telephone Operator Relationship Specialty Start Date End Date Aura Escalante MD [address] [place] [address] [address] [place] [phone] PCP - General 01/08/23
--- OUTSIDE RECORDS SUMMARY | 2025-08-15 14:35 | XMS_ITS | Encounter Summary ---
Author Organization [facility] Address [address] [place] [address] Care Team Providers Care Make Up Editor Name Role Phone Aura Escalante MD Primary Care Provider [phone] Encounter Details Date Type Department Care Team (Latest Contact Info) Description 07/13/2025 Travel Social History Tobacco Use Types Packs/Day [...] Description 01/12/2026 10:40 AM EDT [facility] [place] [facility] [address] [place] [phone] Zuleika Nam, APPRAISAL SPECIALIST [address] [place] [phone] documented as of this encounter Visit Diagnoses Not on filedocumented in this encounter Additional Health Concerns Assessment Noted Time A fall risk assessment has been complete d for the patient 01/05/2025 1:23 PM EDT A Body Mass Index follow-up plan has been documented for the patient 01/05/2025 2:26 PM EDT documented as of this encounter Care Teams Make Up Editor Relationship Specialty Start Date End Date Aura Escalante MD [address] [place] [address] [address] [place] [address] PCP - General 01/08/23 documented as of this encounter
--- OUTSIDE RECORDS SUMMARY | 2025-08-15 14:35 | XMS_ITS | Encounter Summary ---
Author Organization [facility] Address [address] [place] [address] Care Team Providers Care A And P Mechanic Name Role Phone Aura Escalante MD Primary Care Provider + Encounter Details Date Type Department Care Team (Late st Contact Info) Description 02/02/2014 External CPT II [facility] Social History Tobacco Use [...] documented as of this encounter Care Teams A And P Mechanic Relationship Specialty Start Date End Date Aura Escalante MD [address] [place] [id number] PCP - General 09/29/15 documented as of this encounter
[2025-08-15 14:42] LABS: POC Glucose,Bedside 257 gm/dL (70-110)
[2025-08-15] MEDS: MORPHINE 4MG/ML SYRINGE 4 MG IV (14:49)
[2025-08-15] MEDS: ONDANSETRON 4MG/2ML VIAL 4 MG IV (14:49)
[2025-08-15 14:50] LABS: Hematocrit 43.9 % (42.0-52.0); Hemoglobin 14.7 g/dL (14.1-18.0); Immature Granulocytes % 0.6 %; Mean Corpuscular HGB Conc 33.5 g/dL (31.8-35.4); Mean Corpuscular Hemoglobin 31.5 pg (27.0-31.2); Mean Corpuscular Volume 94.0 fl (80-94); Nucleated Red Blood Cells % 0 %; Platelet Count 209 K/mm3 (142-424); Red Blood Count 4.67 M/mm3 (4.60-6.20); Red Cell Distribution Width-SD 45.1 fL; White Blood Count 6.5 K/mm3 (4.8-10.8)
[2025-08-15 14:58] LABS: Albumin Level 4.9 g/dl (3.5-5.0); Chloride 101 mmol/L (98-107); Potassium 3.9 mmoL/L (3.5-5.1); Sodium 139 mmol/L (136-145)
[2025-08-15 14:59] LABS: INR 1.02 (0.9-1.1); Prothrombin Time 11.3 seconds (10.1-12.5)
[2025-08-15 15:00] LABS: Blood Urea Nitrogen 14 mg/dl (9-20); Creatinine Clearance Estimated 71 mL/min (50-200); Creatinine,Serum 1.00 mg/dl (0.66-1.25); Estimated Glomerular Filt Rate 72 ml/min (>60); GFR (African American) 87 ML/MIN (>60)
[2025-08-15 15:01] LABS: Alanine Aminotransferase 32 U/L (12-78); Albumin/Globulin Ratio 1.4 (1.1-1.8); Alkaline Phosphatase 65 U/L (38-126); Anion Gap 17.9 mEq/L (5-15); Aspartate Amino Transferase 39 U/L (17-59); Bilirubin,Total 1.3 mg/dl (0.2-1.3); Calcium 9.8 mg/dl (8.4-10.2); Carbon Dioxide 24 mmol/L (22.0-30.0); Globulin 3.6 g/dL (1.3-3.2); Glucose 280 mg/dl (74-100); Lipase 171 U/L (23-300); Magnesium 1.6 mg/dl (1.6-2.3); Total Protein,Serum 8.5 g/dl (6.3-8.2)
--- NOTE | 2025-08-15 16:06 | PC.NURSE ---
Called [facility] for a patient transfer and they are going to call back.
[2025-08-15] MEDS: HYDROMORPHONE 2MG/ML SYRINGE 1 MG IV ×2 (16:21→18:51)
--- NOTE | 2025-08-15 16:42 | PC.NURSE ---
Elina speaking with doctor at [facility].
--- NOTE | 2025-08-15 16:45 | PC.NURSE ---
Called [facility] for a patient transfer because he was put on a wait list at [facility]. images have been powershared.
== END 2025-08-15 21:17 | disposition short-term general hospital (02) ==
PROVIDERS: Nurse Practitioner; Student in an Organized Health Care Education/Training Program; Emergency Provider Student in an Organized Health Care Education/Training Program; PCP Family Medicine
DX: S72.041A Displaced fracture of base of neck of right femur, initial encounter for closed fracture (principal); E11.65 Type 2 diabetes mellitus with hyperglycemia; W17.89XA Other fall from one level to another, initial encounter; Z79.84 Long term (current) use of oral hypoglycemic drugs
CPT/HCPCS: 72192; 73502; 80053; 82962; 83690; 83735; 85025; 85610; 96374; 96375; 96376; 99285; J1171; J2270; J2405